=== PATIENT | female | born 1945 | race Caucasian/White ===

== ENCOUNTER → 2020-06-30 10:15 | Outpatient (BNV) | payer MEDICARE, OTHER, SELFPAY | PROVIDERS: PCP Internal Medicine; Visit Provider Internal Medicine Medical Oncology | DX: Z85.3 Personal history of malignant neoplasm of breast (principal); M81.0 Age-related osteoporosis without current pathological fracture; Z79.810 Long term (current) use of selective estrogen receptor modulators (SERMs) | CPT/HCPCS: 99213; 99214 ==

== ENCOUNTER 2020-07-17 09:00 | Outpatient (REF) | payer MEDICARE, OTHER, SELFPAY ==
--- NOTE | 2020-07-17 09:06 | MM_ITS ---
EXAMINATION: BONE DENSITOMETRY CLINICAL INDICATION: Osteoporosis, history of left breast cancer in 2014. COMPARISON: Previous BD dated 07/13/2018 and baseline BD dated 08/31/2013. TECHNIQUE: Using a inexio DXA System (software version: 13.1) manufactured by [employer], dual-energy x-ray absorptiometry was performed of the lumbar spine and left hip. The images are of good technical quality. Summary results are attached. FINDINGS: AP SPINE L1-L4: Current: BMD 0.943 g/cm2, Z-score 0.3, T-score -2.0, osteopenia, 6.4% increase from previous, 6.7% increase from baseline (<5% change is not significant). Prior: BMD 0.886 g/cm2. Baseline: BMD 0.884 g/cm2. LEFT FEMUR, NECK: Current: BMD 0.645 g/cm2, Z-score -0.6, T-score -2.8, osteoporosis. Prior: BMD 0.688 g/cm2. Baseline: BMD 0.691 g/cm2. LEFT FEMUR, TOTAL: Current: BMD 0.690 g/cm2, Z-score -0.4, T-score -2.5, osteoporosis, 1.8% decrease from previous, 3.9% decrease from baseline (<5% change is not significant). Prior: BMD 0.703 g/cm2. Baseline: BMD 0.718 g/cm2. IDENTIFIED RISK FACTORS: Osteoporosis, ERT/SERMS, menopause. HISTORY OF FRACTURE: None listed. MEDICATIONS: Vitamin D. MM/XR DEXA axial skeleton IMPRESSION: 1. DIAGNOSIS: Osteoporosis based on the lowest T-score value of -2.8 in the femoral neck applying World Health Organization criteria. 2. 10-YEAR FRACTURE RISK PREDICTION, FRAX: Major osteoporotic fracture (clinical spine, forearm, hip or shoulder) 17.5%. Hip fracture 6.8%. 3. Treatment Recommendations: NOF guidelines recommend consideration for treatment in postmenopausal women and men age 50 and older presenting with the following: -A hip or vertebral (clinical or morphometric) fracture. -T-score less than or equal to -2.5 at the femoral neck or spine after appropriate evaluation to exclude secondary causes. -Low bone mass at the hip or spine and a 10-year fracture probability by FRAX of greater than or equal to 3% for hip fracture or greater than or equal to 20% for major osteoporotic fracture based on the [place] adapted WHO algorithm. 4. Other Recommendations: All treatment decisions require clinical judgment and consideration of individual patient factors, including patient preferences, comorbidities, previous drug use, risk factors not captured in the FRAX model (e.g. frailty, falls, vitamin D deficiency, increased bone turnover, interval significant decline in bone density) and possible under or overestimation of fracture risk by FRAX. Additional medical evaluation for secondary cause of low bone mineral density may be appropriate. FUTURE SCAN RECOMMENDATION: People with diagnosed cases of osteoporosis or at high risk for fracture should have regular bone mineral density tests. For patients eligible for Medicare, routine testing is allowed once every 2 years. The testing frequency can be increased to one year for patients who have rapidly progressing disease, those who are receiving or discontinuing medical therapy to restore bone mass, or have additional risk factors.
== END 2020-07-17 09:01 | disposition home or self-care (01) ==
LOC: HO.MAMMO 09:00
PROVIDERS: PCP Internal Medicine; Visit Provider Internal Medicine Medical Oncology
DX: C50.919 Malignant neoplasm of unspecified site of unspecified female breast (principal); M81.0 Age-related osteoporosis without current pathological fracture; Z78.0 Asymptomatic menopausal state
CPT/HCPCS: 77080

== ENCOUNTER → 2020-09-02 13:42 | Outpatient (BNVA) | payer MEDICARE, OTHER, SELFPAY | PROVIDERS: PCP Internal Medicine; Referring Provider Internal Medicine; Visit Provider Internal Medicine Cardiovascular Disease | DX: I63.9 Cerebral infarction, unspecified (principal); Z95.818 Presence of other cardiac implants and grafts | CPT/HCPCS: 99212 ==

== ENCOUNTER 2020-09-10 11:07 | Outpatient (REF) | payer MEDICARE, OTHER, SELFPAY ==
[2020-09-10 09:09] VITALS: BP 137/75; PULSE 77; RESP 16; TEMP 37.1; O2SAT 99
[2020-09-10 10:00] VITALS: BP 132/72; PULSE 75; RESP 16; O2SAT 99
--- NOTE | 2020-09-10 10:06 | P.BOP_ITS ---
Brief Operative Note Date of Service: 09/10/20 Pre-op diagnosis: Implantable loop recorder in place Post-op diagnosis: same Procedure: Explant implantable loop recorder Technique: Patient was brought to the minor surgery suite. Patient was then laid on the table in a supine position. The precordial area was prepped and draped in a sterile fashion. Patient was then given 2% lidocaine with epinephrine intradermally and subcutaneously at the site of the implantable loop recorder. A small incision was made in the skin and dermal layers. The implantable loop recorder was then removed. The wound was then closed with glue as well as S nikole-Strips. Pressure dressing was applied. Complications none Patient tolerated procedure well Follow up in 10 days for wound check Surgeon: Heriberto Parmar MD Anesthesia: local Estimated blood loss (mL): 5 Pathology: none sent Condition: stable Disposition: same day
== END 2020-09-10 11:08 | disposition home or self-care (01) ==
LOC: HO.MS 11:07
PROVIDERS: PCP Internal Medicine; Visit Provider Internal Medicine Cardiovascular Disease
PROC: (CPT 33286; principal; 2020-09-10 09:30)
DX: Z45.09 Encounter for adjustment and management of other cardiac device (principal); Z86.73 Personal history of transient ischemic attack (TIA), and cerebral infarction without residual deficits
CPT/HCPCS: 33286

== ENCOUNTER → 2020-09-23 10:37 | Outpatient (BNVA) | payer MEDICARE, OTHER, SELFPAY | PROVIDERS: PCP Internal Medicine; Visit Provider Internal Medicine Cardiovascular Disease | DX: Z86.73 Personal history of transient ischemic attack (TIA), and cerebral infarction without residual deficits (principal); Z79.82 Long term (current) use of aspirin; Z98.890 Other specified postprocedural states | CPT/HCPCS: 99212 ==

== ENCOUNTER 2020-11-18 08:02 | Outpatient (REF) | payer MEDICARE, SELFPAY ==
[2020-11-18 08:43] LABS: MANUAL DIFF FLAG NO
[2020-11-18 08:46] LABS: Basophils Absolute Auto 0.1 X10*3/uL (0.0-0.2); Basophils Percent Auto 0.8 % (0-2); Eosinophils Absolute Auto 0.4 X10*3/uL (0.0-0.4); Eosinophils Percent Auto 5.7 % (0-4); Hematocrit 41.8 % (37-47); Hemoglobin 13.9 g/dl (12.0-16.0); Imm Gran Abs Auto 0.02 X10*3/uL (0.00-0.03); Imm Gran Pct Auto 0.3 % (0.0-0.4); Lymphocytes Absolute Auto 1.7 X10*3/uL (1.2-4.9); Lymphocytes Percent Auto 24.2 % (20-40); Mean Corpuscular HGB Conc 33.3 g/dl (31.0-35.0); Mean Corpuscular Hemoglobin 32.9 pg (27.0-33.0); Mean Corpuscular Volume 98.8 fL (80-98); Mean Platelet Volume 10.8 fL (9.4-12.3); Monocytes Absolute Auto 0.5 X10*3/uL (0.1-1.2); Monocytes Percent Auto 6.7 % (2-11); Neutrophils Absolute Auto 4.5 X10*3/uL (2.0-8.3); Neutrophils Percent Auto 62.3 % (45-73); Platelet Count 273 X10*3/uL (160-400); Red Blood Count 4.23 X10*6/uL (4.20-5.50); Red Cell Distribution Width 13.4 % (11.0-16.0); White Blood Count 7.2 X10*3/uL (4.8-10.8)
[2020-11-18 09:18] LABS: Alanine Aminotransferase 19 U/L (0-31); Albumin Level 3.8 g/dL (3.5-5.0); Alkaline Phosphatase 90 U/L (39-117); Anion Gap 15 (12-20); Aspartate Amino Transferase 29 U/L (5-31); Bilirubin Total 0.6 mg/dL (0.0-1.0); Blood Urea Nitrogen 34 mg/dL (9-16); Calcium 9.5 mg/dL (8.4-10.2); Carbon Dioxide 27 mmol/L (22-29); Chloride 107 mmol/L (96-108); Estimated Glomerular Filt Rate 39; Glucose Random 89 mg/dL (60-115); Potassium 4.8 mmol/L (3.3-5.1); Sodium 144 mmol/L (135-145); Total Protein 6.7 g/dL (6.5-8.0)
[2020-11-18 09:41] LABS: Vitamin D 25-OH Total 57.1 ng/mL (>30)
== END 2020-11-18 08:03 | disposition home or self-care (01) ==
LOC: HO.LAB 08:02
PROVIDERS: PCP Internal Medicine; Visit Provider Internal Medicine Medical Oncology
DX: C50.919 Malignant neoplasm of unspecified site of unspecified female breast (principal)
CPT/HCPCS: 36415; 80053; 82306; 85025

== ENCOUNTER 2020-11-21 06:30 | Outpatient (REF) | payer MEDICARE, SELFPAY ==
[2020-11-21 07:50] LABS: Cholesterol 166 mg/dL; HDL Cholesterol 75 mg/dL; LDL Cholesterol Calculated 82 mg/dl; Triglycerides 49 mg/dL; Uric Acid 6.3 mg/dL (2.4-5.7)
== END 2020-11-21 06:31 | disposition home or self-care (01) ==
LOC: HO.LAB 06:30
PROVIDERS: PCP Internal Medicine; Visit Provider Internal Medicine
DX: E11.9 Type 2 diabetes mellitus without complications (principal); M10.9 Gout, unspecified
CPT/HCPCS: 36415; 80061; 84550

== ENCOUNTER 2020-12-17 10:10 | Outpatient (REF) | payer MEDICARE, SELFPAY ==
--- NOTE | ~2020-12-17 | MM_ITS ---
EXAMINATION: MM SCREENING DIGITAL BREAST TOMOSYNTHESIS, BILATERAL CLINICAL INFORMATION: Screening. Asymptomatic. Left breast cancer 2013. COMPARISON: Mammography: 07/16/2019, 07/13/2018, 07/11/2017 TECHNIQUE: Digital breast tomosynthesis is performed in both the craniocaudal and mediolateral oblique views along with computer-aided detection (CAD). Synthesized 2D images are generated from the tomosynthesis. Additional left MLO view is provided. FINDINGS: The breasts are heterogeneously dense, which may obscure small masses (ACR BI-RADS breast composition Category c). Parenchymal pattern is similar to prior studies. There is no developing density or interval mass or architectural abnormality. No interval abnormal calcifications.. Again, there are post therapy changes on left with minor scarring and surgical clips. No significant changes from prior studies. MM/MM tomosynthesis screening BI IMPRESSION: No mammographic evidence of malignancy. Post therapy changes left breast. ASSESSMENT: BI-RADS 2: Benign RECOMMENDATION: Routine annual mammography screening. This patient's information was entered into a reminder system with a target due date for their next mammogram.
== END 2020-12-17 10:11 | disposition home or self-care (01) ==
LOC: HO.MAMMO 10:10
PROVIDERS: Visit Provider Internal Medicine Medical Oncology
DX: Z12.31 Encounter for screening mammogram for malignant neoplasm of breast (principal)
CPT/HCPCS: 77063; 77067

== ENCOUNTER 2021-05-20 06:55 | Outpatient (REF) | payer MEDICARE, OTHER, SELFPAY ==
[2021-05-20 09:45] LABS: Cholesterol 171 mg/dL; HDL Cholesterol 72 mg/dL; LDL Cholesterol Calculated 91 mg/dl; Triglycerides 43 mg/dL; Uric Acid 6.4 mg/dL (2.4-5.7)
== END 2021-05-20 06:56 | disposition home or self-care (01) ==
LOC: HO.LAB 06:55
PROVIDERS: PCP Internal Medicine; Visit Provider Internal Medicine
DX: E11.9 Type 2 diabetes mellitus without complications (principal); M10.9 Gout, unspecified
CPT/HCPCS: 36415; 80061; 84550

== ENCOUNTER → 2021-08-04 10:57 | Outpatient (BNVA) | payer MEDICARE, OTHER, SELFPAY | PROVIDERS: PCP Internal Medicine; Referring Provider Internal Medicine; Visit Provider Surgery | DX: C50.919 Malignant neoplasm of unspecified site of unspecified female breast (principal) | CPT/HCPCS: 99212 ==

== ENCOUNTER 2021-10-20 13:52 | Emergency (ER) | payer MEDICARE, OTHER, SELFPAY ==
--- NOTE | ~2021-10-20 | XR_ITS ---
EXAMINATION: LEFT WRIST X-RAY CLINICAL INFORMATION: Pain. Fall. COMPARISON: None TECHNIQUE: 4 views of the left wrist FINDINGS: The bones are osteopenic. There is a transverse comminuted slightly impacted fracture of the left distal radius. There is slight dorsal angulation of the distal radius with respect to the more proximal shaft seen on the lateral view. There is a comminuted minimally displaced ulnar styloid fracture. Carpal bones are normal appearing. There may be soft tissue calcification in the triangular fibrocartilage complex region. There is soft tissue swelling about the wrist. XR/XR hand wrist LT IMPRESSION: Comminuted left distal radius and ulnar styloid fractures.
[2021-10-20 14:25] VITALS: BP 159/78; PULSE 76; RESP 18; TEMP 36.6; O2SAT 98; BMI 19.3
--- NOTE | 2021-10-20 14:29 | PC.NURSE ---
sling applied, declined apap or motrin
--- NOTE | 2021-10-20 17:37 | ED_ITS ---
HPI - Fall General Chief Complaint: Upper Respiratory Symptoms <Lia Wen NP - Last Filed: 10/20/21 17:42> Stated Complaint: + wrist fracture <Lia Wen NP - Last Filed: 10/20/21 17:42> Time Seen by Provider: 10/20/21 16:53 <Lia Wen NP - Last Filed: 10/20/21 17:42> Source: patient <Lia Wen NP - Last Filed: 10/20/21 17:42> Mode of arrival: ambulatory <Lia Wen NP - Last Filed: 10/20/21 17:42> Limitations: no limitations <Lia Wen NP - Last Filed: 10/20/21 17:42> History of Present Illness HPI Narrative: 76-year-old female here with reports of left wrist pain after a fall. Patient tells me she was time her shoe lace when she lost her balance falling forward catching herself with her left wrist there was no head strike or loss of consciousness. Patient is on aspirin 81 mg daily only. No additional antic oagulation. Seen at urgent care referred into the emergency department for further evaluation. Patient denies any numbness, tingling, weakness, redness, warmth to the extremity <Lia Wen NP - Last Filed: 10/20/21 17:42> Related Data Home Medications: Home Medications Medication Instructions Recorded Confirmed aspirin 81 mg tablet 81 mg PO DAILY 06/30/20 10/20/21 cholecalciferol (vitamin D3) 25 25 mcg PO DAILY 06/30/20 10/20/21 mcg (1,000 unit) tablet (Vitamin D3) Previous Rx's Medication Instructions Recorded allopurinol 100 mg tablet 100 mg PO DAILY #90 tab 07/09/21 atorvastatin 40 mg tablet 40 mg PO DAILY #90 tab 09/29/21 raloxifene 60 mg tablet 60 mg PO DAILY #90 tab 09/29/21 <Lia Wen NP - Last Filed: 10/20/21 17:42> Allergies/Adverse Reactions: Allergies Allergy/AdvReac Type Severity Reaction Status Date / Time No Known Allergies Allergy Verified 10/20/21 13:30 [No Known Allergies*] <Lia Wen NP - Last Filed: 10/20/21 17:42> Review of Systems Verdana 4l Review of Systems: Verdana 4d Yes all other systems are reviewed and are negative Verdana 4Il <Lia Wen NP - Last Filed: 10/20/21 17:42> Verdana 4d Verdana 4l Constitutional: Verdana 4d Verdana 4d Constitutional: Verdana 4d Reports no additional constitutional complaints, Denies body ache(s), Denies chills, Denies fever(s), Denies headache(s) and Denies weakness Verdana 4Il <Lia Wen NP - Last Filed: 10/20/21 17:42> VerdanaVerdana 4d Eyes: Eyes: Reports no additional eye complaints and Denies change in vision <Lia Wen NP - Last Filed: 10/20/21 17:42> ENT: Reports system reviewed and no additional complaints, except as documented, Denies dizziness, Denies headache(s), Denies nasal congestion, Denies nasal discharge and Denies neck pain <Lia Wen NP - Last Filed: 10/20/21 17:42> Cardiovascular: Cardiovascular: Reports no additional cardiovascular complaints, Denies chest pain, Denies leg edema and Denies dyspnea <Lia Wen NP - Last Filed: 10/20/21 17:42> Respiratory: Respiratory: Reports no additional respiratory complaints, Denies cough and Denies dyspnea <Lia Wen NP - Last Filed: 10/20/21 17:42> Gastrointestinal: Gastrointestinal: Reports no additional gastrointestinal complaints, Denies abdominal pain, Denies diarrhea, Denies nausea and Denies vomiting <Lia Wen NP - Last Filed: 10/20/21 17:42> Genitourinary: Genitourinary: Reports no additional female genitourinary complaints and Denies urinary incontinence <Lia Wen NP - Last Filed: 10/20/21 17:42> Musculoskeletal: Musculoskeletal: Reports no additional musculoskeletal complaints, Denies back pain, Reports arthralgias, Reports joint swelling, Reports limited range of motion, Denies neck pain, Denies numbness and Denies tingling <Lia Wen NP - Last Filed: 10/20/21 17:42> Integumentary/Breasts: Skin/Breast: Reports system reviewed and no additional complaints, except as docu and Denies rash <Lia Wen NP - Last Filed: 10/20/21 17:42> Neurologic: Reports system reviewed and no additional complaints, except as documented, Denies Abnormal speech present, Denies dizziness, Denies headache(s), Denies numbness, Denies tingling and Denies weakness <Lia Wen NP - Last Filed: 10/20/21 17:42> PMFSH Past Medical History Attestation statement: The following information was validated with the patient. <Lia Wen NP - Last Filed: 10/20/21 17:42> Source: old records reviewed and nursing notes reviewed <Lia Wen NP - Last Filed: 10/20/21 17:42> Medical History: Medical History CVA (cerebral vascular accident) Hyperlipidemia Status post placement of implantable loop recorder <Lia Wen NP - Last Filed: 10/20/21 17:42> Surgical History: Surgical History History of left breast biopsy (07/19/13) Hx of cataract extraction Hx of colonoscopy (03/04/15) Hx of lumpectomy (08/17/13) <Lia Wen NP - Last Filed: 10/20/21 17:42> Family History Family History: Family History Father COPD (chronic obstructive pulmonary disease) Mother Asthma Sister Breast cancer, Onset Age: 70 Maternal Grandfather Lung cancer <Lia Wen NP - Last Filed: 10/20/21 17:42> Social History Social History: Social History Housing: House Alcohol intake: never Patient Tobacco Use Status: Never used Tobacco e-Cigarette/Vaping Use: Never Used Second Hand Smoke Exposure: No Advance Directives: No Advance Directives Information Provided: No service: No 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al status: retired <Lia Wen NP - Last Filed: 10/20/21 17:42> Physical Exam Verdana 4l Vital Signs: Verdana 4d Verdana 4d Vital Signs: Verdana 4d Verdana 4Bd Last Vital Signs Verdana 4d Personal Caregiver New 4d Personal Caregiver New 4d Temp 98 F 10/20/21 14:25 Personal Caregiver New 4d Pulse 76 10/20/21 14:25 Personal Caregiver New 4d Resp 18 10/20/21 14:25 BP 159/78 H 10/20/21 14:25 Pulse Ox 98 10/20/21 14:25 BMI result Body Mass Index 19.3 <Lia Wen NP - Last Filed: 10/20/21 17:42> Const: General: cooperative, healthy appearing, comfortable and no acute distress <Lia Wen NP - Last Filed: 10/20/21 17:42> Orientation/consciousness: patient oriented x3 <Lia Wen NP - Last Filed: 10/20/21 17:42> Limitations: no limitations <Lia Wen NP - Last Filed: 10/20/21 17:42> HENMT: Head: Yes normal to inspection <Lia Wen NP - Last Filed: 10/20/21 17:42> Ears: hearing grossly normal bilaterally <Lia Wen NP - Last Filed: 10/20/21 17:42> General nose exam: Normal external nose present <Lia Wen NP - Last Filed: 10/20/21 17:42> Face and sinus: Yes normal facial exam <Lia Wen NP - Last Filed: 10/20/21 17:42> Mouth: Normal oral and palatal mucosa present <Lia Wen NP - Last Filed: 10/20/21 17:42> Throat: Yes posterior oropharynx normal <Lia Wen NP - Last Filed: 10/20/21 17:42> Eyes: General: appearance normal, both eyes and all related structures <Lia Wen NP - Last Filed: 10/20/21 17:42> Pupils: Equal, round and reactive pupils present <Lia Wen NP - Last Filed: 10/20/21 17:42> Neck: Neck: Yes normal visual inspection <Lia Wen NP - Last Filed: 10/20/21 17:42> Chest: Chest palpation & inspection: normal inspection of the chest <Lia Wen NP - Last Filed: 10/20/21 17:42> Resp: Effort & Inspection: normal respiratory effort <Lia Wen NP - Last Filed: 10/20/21 17:42> Auscultation: clear to auscultation bilaterally <Lia Wen NP - Last Filed: 10/20/21 17:42> Cardio: Rate: regular rate <Lia Wen NP - Last Filed: 10/20/21 17:42> Rhythm: regular rhythm <Lia Wen NP - Last Filed: 10/20/21 17:42> Peripheral pulses: Peripheral pulses 2+ throughout <Lia eWn NP - Last Filed: 10/20/21 17:42> GI: Inspection: Yes normal to inspection <Lia Wen NP - Last Filed: 10/20/21 17:42> Palpation (GI): Soft to palpation and nontender <Lia Wen NP - Last Filed: 10/20/21 17:42> Auscultation: normal bowel sounds <Lia Wen NP - Last Filed: 10/20/21 17:42> Back/Spine/Pelvis: Thoracic/Lumbar Spine: thoracic and lumbar spine normal to inspection <Lia Wen NP - Last Filed: 10/20/21 17:42> Skin: General skin exam: no rashes or lesions noted <Lia Wen NP - Last Filed: 10/20/21 17:42> Neuro: General: patient oriented x3, no focal motor deficits and normal sensation to monofilament <BLAIR Archer Last Filed: 10/20/21 17:42> Cranial nerves: Yes Equal, round and reactive pupils present <BLAIR Archer Last Filed: 10/20/21 17:42> Cognition (Neuro): normal cognition <BLAIR Archer Last Filed: 10/20/21 17:42> Speech: No Abnormal speech present <BLAIR Archer Last Filed: 10/20/21 17:42> Gait exam (Neuro): Normal gait present <BLAIR Archer Last Filed: 10/20/21 17:42> Motor exam (neuro): 5/5 motor strength present throughout <BLAIR Archer Last Filed: 10/20/21 17:42> Extrem: Other: To the left wrist there is swelling, deformity, tenderness with limited range of motion due to pain. Neurovascular intact distally to the extremity. Over the palmar aspect there is a skin tear but bleeding is controlled. <BLAIR Archer Last Filed: 10/20/21 17:42> General: Yes normal to inspection <Lia Wen NP - Last Filed: 10/20/21 17:42> Course Course Course Narrative: 76-year-old female here with left wrist pain, swelling after a mechanical fall. X-ray show Comminuted left distal radius and ulnar styloid fractures.? -patient placed in a sugar-tong splint and given sling for comfort. Reviewed follow-up with Orthopedics. Reviewed rice. Reviewed worrisome signs symptoms when to return to the emergency department. Comfortable discharge home. <BLAIR Archer Last Filed: 10/20/21 17:42> Procedures Orthopedic Splinting/Casting Injury #1: Side: left <BLAIR Archer Last Filed: 10/20/21 17:42> Upper Extremity Injury Location: forearm <BLAIR Archer Last Filed: 10/20/21 17:42> Upper Extremity Immobilizer: sugar tong splint <BLAIR Archer Last Filed: 10/20/21 17:42> MDM - Fall Medical Records Attestation: I reviewed the patient's medical records. <Lia Wen NP - Last Filed: 10/20/21 17:42> Lab Data Attestation: I reviewed the patient's lab results. <BLAIR Archer Last Filed: 10/20/21 17:42> Imaging Data hand/wrist x-ray: Attestation: I personally reviewed and interpreted this imaging study as follows: <BLAIR Archer Last Filed: 10/20/21 17:42> Radiologist's impression: FINDINGS: The bones are osteopenic. There is a transverse comminuted slightly impacted fracture of the left distal radius. There is slight dorsal angulation of the distal radius with respect to the more proximal shaft seen on the lateral view. There is a comminuted minimally displaced ulnar styloid fracture. Carpal bones are normal appearing. There may be soft tissue calcification in the triangular fibrocartilage complex region. There is soft tissue swelling about the wrist.? XR/XR hand wrist LT IMPRESSION: Comminuted left distal radius and ulnar styloid fractures.? <BLAIR Archer Last Filed: 10/20/21 17:42> Discharge Plan Discharge Clinical Impression: Left wrist fracture <BLAIR Archer Last Filed: 10/20/21 17:42> Patient Disposition: Home, Self-Care <BLAIR Archer Last Filed: 10/20/21 17:42> Instructions: Wrist Fracture in Adults (ED) <BLAIR Archer Last Filed: 10/20/21 17:42> Additional Instructions: Splint stays on at all times. Do not get it wet Sling for comfort only Elevation on 3 or more pillows Call orthopedics tomorrow for an apointment <BLAIR Archer Last Filed: 10/20/21 17:42> Prescriptions: No Action allopurinol 100 mg tablet 100 mg PO DAILY Qty: 90 8RF atorvastatin 40 mg tablet 40 mg PO DAILY Qty: 90 1RF Rx Instructions: Please call and schedule cardiology follow-up aspirin 81 mg Tablet 81 mg PO DAILY 0RF cholecalciferol (vitamin D3) [Vitamin D3] 25 mcg (1,000 unit) Tablet 25 mcg PO DAILY 0RF raloxifene 60 mg Tablet 60 mg PO DAILY Qty: 90 4RF <Lia Wen NP - Last Filed: 10/20/21 17:42> Referrals: Mignon Alicia MD [Physician] - 2 days <Lia Wen NP - Last Filed: 10/20/21 17:42> Interventions: ED Discharge Assessment Last Done: 10/20/21 18:09 <Lia Wen NP - Last Filed: 10/20/21 17:42> Discharge Date/Time: 10/20/21 18:12 <Lia Wen NP - Last Filed: 10/20/21 17:42>
== END 2021-10-20 18:12 | disposition home or self-care (01) ==
LOC: HO.ED 13:52
PROVIDERS: Emergency Provider Emergency Medicine; PCP Internal Medicine; Visit Provider Hospitalist
DX: S62.102A Fracture of unspecified carpal bone, left wrist, initial encounter for closed fracture (principal); M25.532 Pain in left wrist; J06.9 Acute upper respiratory infection, unspecified; W01.0XXA Fall on same level from slipping, tripping and stumbling without subsequent striking against object, initial encounter; Y93.9 Activity, unspecified; Y92.9 Unspecified place or not applicable; Y99.9 Unspecified external cause status; Z79.82 Long term (current) use of aspirin; Z79.899 Other long term (current) drug therapy
CPT/HCPCS: 29125; 73110; 73130; 99283; 99284

== ENCOUNTER → 2021-10-22 09:41 | Outpatient (BNVA) | payer MEDICARE, OTHER, SELFPAY | PROVIDERS: PCP Internal Medicine; Visit Provider Physician Assistant | DX: S52.502A Unspecified fracture of the lower end of left radius, initial encounter for closed fracture (principal) | CPT/HCPCS: 29125; 99202 ==

== ENCOUNTER 2021-10-27 09:01 | Outpatient (REF) | payer MEDICARE, OTHER, SELFPAY ==
--- NOTE | ~2021-10-27 | XR_ITS ---
EXAMINATION: XR WRIST, LEFT CLINICAL INFORMATION: Pain left wrist. Follow-up fracture. COMPARISON: Left hand and wrist 10/20/2021 . TECHNIQUE: PA, lateral, and oblique views of the left wrist. FINDINGS: There is a comminuted distal radial transverse fracture without displacement. There is a mildly displaced ulnar styloid process fracture with moderate wrist soft tissue swelling along the ulnar aspect. There is mild dorsal angulation at radial fracture site. XR/XR wrist LT min 3V IMPRESSION: Nondisplaced distal radial comminuted fracture with dorsal angulation and minimally displaced ulnar styloid fracture with soft tissue swelling, stable compared to previous study 10/20/2021.
== END 2021-10-27 09:02 | disposition home or self-care (01) ==
LOC: HO.HOSX 09:01
PROVIDERS: Visit Provider Orthopaedic Surgery
DX: S52.502A Unspecified fracture of the lower end of left radius, initial encounter for closed fracture (principal)
CPT/HCPCS: 25600; 73110; 99212

== ENCOUNTER 2021-11-03 07:42 | Outpatient (REF) | payer MEDICARE, OTHER, SELFPAY ==
--- NOTE | ~2021-11-03 | XR_ITS ---
EXAMINATION: XR WRIST, LEFT CLINICAL INFORMATION: Pain in the wrist. COMPARISON: X-ray of the left wrist most recent 10/27/2020. TECHNIQUE: PA, lateral, and oblique views of the left wrist. FINDINGS: Distal radius fracture and ulnar styloid fracture again visualized without change in appearance or alignment. Decreased soft tissue swelling. Remaining bone and joints in the wrist are normal. XR/XR wrist LT min 3V IMPRESSION: Stable distal radius and ulnar styloid fracture.
== END 2021-11-03 07:43 | disposition home or self-care (01) ==
LOC: HO.HOSX 07:42
PROVIDERS: Visit Provider Physician Assistant
DX: S52.502A Unspecified fracture of the lower end of left radius, initial encounter for closed fracture (principal); X58.XXXA Exposure to other specified factors, initial encounter; Y93.9 Activity, unspecified; Y92.9 Unspecified place or not applicable; Y99.9 Unspecified external cause status
CPT/HCPCS: 29085; 73110; 99212

== ENCOUNTER 2021-11-12 07:46 | Outpatient (REF) | payer MEDICARE, OTHER, SELFPAY ==
[2021-11-12 08:11] LABS: MANUAL DIFF FLAG NO
[2021-11-12 08:40] LABS: Basophils Percent Auto 0.4 % (0-2); Eosinophils Absolute Auto 0.3 X10*3/uL (0.0-0.4); Eosinophils Percent Auto 3.3 % (0-4); Hemoglobin 13.4 g/dl (12.0-16.0); Imm Gran Abs Auto 0.04 X10*3/uL (0.00-0.03); Imm Gran Pct Auto 0.4 % (0.0-0.4); Lymphocytes Absolute Auto 1.3 X10*3/uL (1.2-4.9); Mean Corpuscular HGB Conc 33.5 g/dl (31.0-35.0); Mean Corpuscular Hemoglobin 33.1 pg (27.0-33.0); Mean Corpuscular Volume 98.8 fL (80.0-98.0); Mean Platelet Volume 10.4 fL (9.4-12.3); Monocytes Absolute Auto 0.5 X10*3/uL (0.1-1.2); Monocytes Percent Auto 5.4 % (2-11); Neutrophils Absolute Auto 7.3 x10*3/uL (2.0-8.3); Neutrophils Percent Auto 76.5 % (45-73); Platelet Count 415 X10*3/uL (160-400); Red Blood Count 4.05 X10*6/uL (4.20-5.50); Red Cell Distribution Width 13.1 % (11.0-16.0); White Blood Count 9.5 X10*3/uL (4.8-10.8)
[2021-11-12 09:03] LABS: Alanine Aminotransferase 12 U/L (0-31); Albumin Level 3.6 g/dL (3.5-5.0); Alkaline Phosphatase 85 U/L (39-117); Anion Gap 13 (12-20); Aspartate Amino Transferase 24 U/L (5-31); Bilirubin Total 0.5 mg/dL (0.0-1.0); Blood Urea Nitrogen 27 mg/dL (9-16); Calcium 10.1 mg/dL (8.4-10.2); Carbon Dioxide 30 mmol/L (22-29); Chloride 103 mmol/L (96-108); Cholesterol 169 mg/dL; Estimated Glomerular Filt Rate 41; Glucose Fasting 94 mg/dL (60-99); HDL Cholesterol 70 mg/dL; LDL Cholesterol Calculated 89 mg/dl; Potassium 5.3 mmol/L (3.3-5.1); Sodium 141 mmol/L (135-145); Total Protein 6.8 g/dL (6.5-8.0); Triglycerides 50 mg/dL; Uric Acid 6.1 mg/dL (2.4-5.7)
== END 2021-11-12 07:47 | disposition home or self-care (01) ==
LOC: HO.LAB 07:46
PROVIDERS: PCP Internal Medicine; Visit Provider Internal Medicine
DX: Z00.00 Encounter for general adult medical examination without abnormal findings (principal); M10.9 Gout, unspecified; E11.9 Type 2 diabetes mellitus without complications
CPT/HCPCS: 36415; 80053; 80061; 84550; 85025

== ENCOUNTER 2021-11-17 07:30 | Outpatient (REF) | payer MEDICARE, OTHER, SELFPAY ==
--- NOTE | ~2021-11-17 | XR_ITS ---
EXAMINATION: XR WRIST, LEFT CLINICAL INFORMATION: Fracture. Follow-up. COMPARISON: Radiographs left wrist 11/03/2021, 10/27/2021, 10/20/2021. TECHNIQUE: Left wrist is imaged in 3 views. FINDINGS: Transverse distal radial fracture is unchanged in alignment. There is increased callus around the fracture site and the fracture line is less distinct. There is fracture ulnar styloid similar in alignment to prior exam. The ulnar variance is within neutral. There is no dislocation. Mild narrowing third MCP joint again seen. There is generalized osteopenia. XR/XR wrist LT min 3V IMPRESSION: Healing distal left radial fracture. No change in alignment. Stable ulnar styloid fracture.
== END 2021-11-17 07:31 | disposition home or self-care (01) ==
LOC: HO.HOSX 07:30
PROVIDERS: Visit Provider Physician Assistant
DX: M25.532 Pain in left wrist (principal); S52.515A Nondisplaced fracture of left radial styloid process, initial encounter for closed fracture; S52.615A Nondisplaced fracture of left ulna styloid process, initial encounter for closed fracture; X58.XXXA Exposure to other specified factors, initial encounter; Y93.9 Activity, unspecified; Y92.9 Unspecified place or not applicable; Y99.8 Other external cause status; M85.832 Other specified disorders of bone density and structure, left forearm; M85.831 Other specified disorders of bone density and structure, right forearm; E78.5 Hyperlipidemia, unspecified; Z86.73 Personal history of transient ischemic attack (TIA), and cerebral infarction without residual deficits; Z95.818 Presence of other cardiac implants and grafts
CPT/HCPCS: 73110; 99212

== ENCOUNTER 2021-12-10 08:05 | Outpatient (REF) | payer MEDICARE, OTHER, SELFPAY ==
--- NOTE | ~2021-12-10 | XR_ITS ---
EXAMINATION: XR wrist LT min 3V CLINICAL INFORMATION: Pain COMPARISON: 11/17/2021 wrist radiographs TECHNIQUE: 3 views of the wrist XR/XR wrist LT min 3V FINDINGS/IMPRESSION: Marked osteopenia which limits evaluation. Redemonstration of the ulnar styloid avulsion fracture in unchanged alignment. No bony callus formation. Redemonstration of the dorsally oriented fracture of the distal radial metaphysis in unchanged alignment with decreased conspicuity of the lucent fracture line compatible with ongoing healing. Degenerative changes of the third metacarpophalangeal joint again seen, however only partially imaged. Soft tissues are unremarkable.
== END 2021-12-10 08:06 | disposition home or self-care (01) ==
LOC: HO.HOSX 08:05
PROVIDERS: Visit Provider Physician Assistant
DX: S52.502D Unspecified fracture of the lower end of left radius, subsequent encounter for closed fracture with routine healing (principal)
CPT/HCPCS: 73110; 99212

== ENCOUNTER 2021-12-22 07:10 | Outpatient (REF) | payer MEDICARE, OTHER, SELFPAY ==
--- NOTE | ~2021-12-22 | XR_ITS ---
EXAMINATION: XR WRIST, LEFT CLINICAL INFORMATION: Pain COMPARISON: Previous x-rays most recent 12/10/2021 TECHNIQUE: PA, lateral, and oblique views of the left wrist. FINDINGS: There is increased transverse sclerosis in the distal radius suggestive of a healing fracture. This appears unchanged. There is a minimally displaced ulnar styloid fracture that appears unchanged. The bones are very osteopenic. Soft tissues are unremarkable. XR/XR wrist LT min 3V IMPRESSION: Healing nondisplaced transverse left distal radius fracture. No change in minimally displaced ulnar styloid fracture.
== END 2021-12-22 07:11 | disposition home or self-care (01) ==
LOC: HO.HOSX 07:10
PROVIDERS: Visit Provider Physician Assistant
DX: S52.502A Unspecified fracture of the lower end of left radius, initial encounter for closed fracture (principal)
CPT/HCPCS: 73110; 99212

== ENCOUNTER 2022-01-14 09:48 | Outpatient (REF) | payer MEDICARE, OTHER, SELFPAY ==
--- NOTE | ~2022-01-14 | MM_ITS ---
EXAMINATION: MM SCREENING DIGITAL BREAST TOMOSYNTHESIS, BILATERAL CLINICAL INFORMATION: Screening. Asymptomatic. Status post left breast biopsy for well differentiated invasive ductal carcinoma in 2013. COMPARISON: Mammography: December 17, 2020 and studies dating back to June 25, 2013 TECHNIQUE: Digital breast tomosynthesis is performed in both the craniocaudal and mediolateral oblique views along with computer-aided detection (CAD). Synthesized 2D images are generated from the tomosynthesis. FINDINGS: The breasts are extremely dense, which lowers the sensitivity of mammography (ACR BI-RADS breast composition Category d). There are no significant masses, abnormal calcifications, or other abnormalities. Architectural distortion upper outer aspect deep left breast from previous surgery again seen. MM/MM tomosynthesis screening BI IMPRESSION: There are no significant changes from prior study. ASSESSMENT: BI-RADS 2: Benign RECOMMENDATION: Routine annual mammography screening. This patient's information was entered into a reminder system with a target due date for their next mammogram.
== END 2022-01-14 09:49 | disposition home or self-care (01) ==
LOC: HO.MAMMO 09:48
PROVIDERS: Visit Provider Internal Medicine Medical Oncology
DX: Z12.31 Encounter for screening mammogram for malignant neoplasm of breast (principal)
CPT/HCPCS: 77063; 77067

== ENCOUNTER 2022-01-18 09:30 | Outpatient (RCR) | payer MEDICARE, OTHER, SELFPAY ==
--- NOTE | 2022-01-18 11:51 | MHC.OT.DC ---
[address] [phone] F: [phone] Occupational Therapy Discharge Note Provider: Rukhsana Valdez Diagnosis: Left comminuted distal radius and ulnar styloid Date of Surgery: Date of Evaluation: 12/14/21 Date of Discharge: 01/18/22 Treatments to Date: 9 Cancellations to Date: No Shows to Date: Discharge Status: Improved Function Independent with HEP Patient Elected to Stop Discharge Summary: Pt reports no difficulty with daily activities with having her open tight jars and any heavy lifting Wrist ROM WFL. 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 Appears to be doing HEP for upper body strengthening. Anticipate con't slow improvement . Pt has been encouraged to resume her exercise program at the [facility]. Electronically Signed By: Chasity Healy OT CHT CLT Reviewed/agree with student documentation: N/A Therapist: Please Sign and return to therapist, thank you for your referral.
== END 2022-01-18 11:52 | disposition home or self-care (01) ==
LOC: HO.OT 09:30
PROVIDERS: PCP Internal Medicine; Visit Provider Physician Assistant
DX: S52.502D Unspecified fracture of the lower end of left radius, subsequent encounter for closed fracture with routine healing (principal)
CPT/HCPCS: 97110; 97165; 97530

== ENCOUNTER 2022-05-27 06:35 | Outpatient (REF) | payer MEDICARE, SELFPAY ==
[2022-05-27 07:46] LABS: Cholesterol 162 mg/dL; HDL Cholesterol 68 mg/dL; LDL Cholesterol Calculated 85 mg/dl; Triglycerides 49 mg/dL
== END 2022-05-27 06:36 | disposition home or self-care (01) ==
LOC: HO.LAB 06:35
PROVIDERS: PCP Internal Medicine; Visit Provider Internal Medicine
DX: Z00.00 Encounter for general adult medical examination without abnormal findings (principal)
CPT/HCPCS: 36415; 80061

== ENCOUNTER 2022-07-21 10:12 | Outpatient (REF) | payer BC, OTHER, SELFPAY ==
--- NOTE | ~2022-07-21 | MM_ITS ---
EXAMINATION: BONE DENSITOMETRY CLINICAL INDICATION: Age-related osteoporosis without current pathological fracture. COMPARISON: Previous BD dated 07/17/2020 and baseline BD dated 08/31/2013. TECHNIQUE: Using a Feed[employer] DXA System (software version: 13.1) manufactured by [email or web address], dual-energy x-ray absorptiometry was performed of the lumbar spine and left hip. The images are of good technical quality. Summary results are attached. FINDINGS: AP SPINE L1-L4: Current: BMD 0.943 g/cm2, Z-score 0.3, T-score -2.0, osteopenia, 0.0% no change from previous, 6.7% increase from baseline (<5% change is not significant). Prior: BMD 0.943 g/cm2. Baseline: BMD 0.884 g/cm2. LEFT FEMUR, NECK: Current: BMD 0.710 g/cm2, Z-score 0.0, T-score -2.4, osteopenia. Prior: BMD 0.645 g/cm2. Baseline: BMD 0.691 g/cm2. LEFT FEMUR, TOTAL: Current: BMD 0.705 g/cm2, Z-score -0.2, T-score -2.4, osteopenia, 2.2% increase from previous, 1.8% decrease from baseline (<5% change is not significant). Prior: BMD 0.690 g/cm2. Baseline: BMD 0.718 g/cm2. IDENTIFIED RISK FACTORS: Menopause, osteoporosis, history of fracture (adult). HISTORY OF FRACTURE: Wrist. MEDICATIONS: Vitamin D, ERT/SERMS. MM/XR DEXA axial skeleton IMPRESSION: 1. DIAGNOSIS: Osteopenia based on the lowest T-score value of -2.4 in the femoral neck and total femur applying World Health Organization criteria. 2. 10-YEAR FRACTURE RISK PREDICTION, FRAX: Major osteoporotic fracture (clinical spine, forearm, hip or shoulder) 21.6%. Hip fracture 6.9%. 3. Treatment Recommendations: NOF guidelines recommend consideration for treatment in postmenopausal women and men age 50 and older presenting with the following: -A hip or vertebral (clinical or morphometric) fracture. -T-score less than or equal to -2.5 at the femoral neck or spine after appropriate evaluation to exclude secondary causes. -Low bone mass at the hip or spine and a 10-year fracture probability by FRAX of greater than or equal to 3% for hip fracture or greater than or equal to 20% for major osteoporotic fracture based on the [place] adapted WHO algorithm. 4. Other Recommendations: All treatment decisions require clinical judgment and consideration of individual patient factors, including patient preferences, comorbidities, previous drug use, risk factors not captured in the FRAX model (e.g. frailty, falls, vitamin D deficiency, increased bone turnover, interval significant decline in bone density) and possible under or overestimation of fracture risk by FRAX. Additional medical evaluation for secondary cause of low bone mineral density may be appropriate. FUTURE SCAN RECOMMENDATION: People with diagnosed cases of osteoporosis or at high risk for fracture should have regular bone mineral density tests. For patients eligible for Medicare, routine testing is allowed once every 2 years. The testing frequency can be increased to one year for patients who have rapidly progressing disease, those who are receiving or discontinuing medical therapy to restore bone mass, or have additional risk factors.
== END 2022-07-21 10:13 | disposition home or self-care (01) ==
LOC: HO.MAMMO 10:12
PROVIDERS: PCP Internal Medicine; Visit Provider Internal Medicine Medical Oncology
DX: M81.0 Age-related osteoporosis without current pathological fracture (principal)
CPT/HCPCS: 77080

== ENCOUNTER 2022-11-24 07:06 | Outpatient (REF) | payer BC, OTHER, SELFPAY ==
[2022-11-24 08:24] LABS: Cholesterol 171 mg/dL; HDL Cholesterol 73 mg/dL; LDL Cholesterol Calculated 90 mg/dl; Triglycerides 40 mg/dL; Uric Acid 5.9 mg/dL (2.4-5.7)
== END 2022-11-24 07:07 | disposition home or self-care (01) ==
LOC: HO.LAB 07:06
PROVIDERS: PCP Internal Medicine; Referring Provider Internal Medicine Medical Oncology; Visit Provider Internal Medicine
DX: M10.9 Gout, unspecified (principal); E78.5 Hyperlipidemia, unspecified
CPT/HCPCS: 36415; 80061; 84550

== ENCOUNTER 2023-01-31 08:54 | Outpatient (REF) | payer BC, SELFPAY ==
--- NOTE | ~2023-01-31 | MM_ITS ---
EXAMINATION: MM SCREENING DIGITAL BREAST TOMOSYNTHESIS, BILATERAL CLINICAL INFORMATION: Screening. Asymptomatic. Family history breast cancer, sister. Personal history left breast cancer status post lumpectomy, 2012. COMPARISON: Mammography: 01/14/2022, 12/17/2020, 07/16/2019 TECHNIQUE: Digital breast tomosynthesis is performed in both the craniocaudal and mediolateral oblique views along with computer-aided detection (CAD). Synthesized 2D images are generated from the tomosynthesis. FINDINGS: The breasts are heterogeneously dense, which may obscure small masses (ACR BI-RADS breast composition Category c). There are post therapy changes left breast with reduced breast size and stable scarring and surgical clips. Neither breast shows developing density or interval mass or architectural abnormality or interval abnormal calcifications. No significant mass or other abnormalities. No significant changes. MM/MM tomosynthesis screening BI IMPRESSION: -No mammographic evidence of malignancy. -Post therapy changes left breast. ASSESSMENT: BI-RADS 2: Benign RECOMMENDATION: Routine annual mammography screening. This patient's information was entered into a reminder system with a target due date for their next mammogram.
== END 2023-01-31 08:55 | disposition home or self-care (01) ==
LOC: HO.MAMMO 08:54
PROVIDERS: PCP Internal Medicine; Visit Provider Internal Medicine
DX: Z12.31 Encounter for screening mammogram for malignant neoplasm of breast (principal)
CPT/HCPCS: 77063; 77067

== ENCOUNTER 2023-06-01 07:18 | Outpatient (REF) | payer BC, OTHER, SELFPAY ==
[2023-06-01 07:32] LABS: MANUAL DIFF FLAG NO
[2023-06-01 08:02] LABS: Basophils Percent Auto 0.6 % (0-2); Eosinophils Absolute Auto 0.4 X10*3/uL (0.0-0.4); Eosinophils Percent Auto 5.1 % (0-4); Hematocrit 40.5 % (37.0-47.0); Hemoglobin 13.3 g/dl (12.0-16.0); Imm Gran Abs Auto 0.02 X10*3/uL (0.00-0.03); Imm Gran Pct Auto 0.3 % (0.0-0.4); Lymphocytes Absolute Auto 1.7 X10*3/uL (1.2-4.9); Mean Corpuscular HGB Conc 32.8 g/dl (31.0-35.0); Mean Corpuscular Hemoglobin 32.4 pg (27.0-33.0); Mean Corpuscular Volume 98.8 fL (80.0-98.0); Monocytes Absolute Auto 0.5 X10*3/uL (0.1-1.2); Monocytes Percent Auto 7.1 % (2-11); Neutrophils Absolute Auto 4.3 x10*3/uL (2.0-8.3); Neutrophils Percent Auto 62.9 % (45-73); Platelet Count 245 X10*3/uL (160-400); Red Cell Distribution Width 13.8 % (11.0-16.0); White Blood Count 6.9 X10*3/uL (4.8-10.8)
[2023-06-01 08:37] LABS: Alanine Aminotransferase 12 U/L (0-31); Albumin Level 3.5 g/dL (3.5-5.0); Alkaline Phosphatase 78 U/L (39-117); Anion Gap 12 (12-20); Aspartate Amino Transferase 27 U/L (5-31); Bilirubin Total 0.5 mg/dL (0.0-1.0); Blood Urea Nitrogen 27 mg/dL (9-16); Calcium 9.4 mg/dL (8.4-10.2); Carbon Dioxide 26 mmol/L (22-29); Chloride 110 mmol/L (96-108); Cholesterol 155 mg/dL (<200); Estimated Glomerular Filt Rate 40; Glucose Fasting 86 mg/dL (60-99); HDL Cholesterol 75 mg/dL (>40); LDL Cholesterol Calculated 72 mg/dL (<100); Potassium 4.3 mmol/L (3.3-5.1); Sodium 144 mmol/L (135-145); Total Protein 6.6 g/dL (6.5-8.0); Triglycerides 41 mg/dL (<150); Uric Acid 5.7 mg/dL (2.4-5.7)
[2023-06-01 08:55] LABS: Thyroid Stimulating Hormone 4.89 uIU/mL (0.32-4.0)
== END 2023-06-01 07:19 | disposition home or self-care (01) ==
LOC: HO.LAB 07:18
PROVIDERS: PCP Internal Medicine; Visit Provider Internal Medicine
DX: E03.9 Hypothyroidism, unspecified (principal); E78.5 Hyperlipidemia, unspecified; D64.9 Anemia, unspecified; N28.9 Disorder of kidney and ureter, unspecified; M10.9 Gout, unspecified
CPT/HCPCS: 36415; 80053; 80061; 84443; 84550; 85025

== ENCOUNTER 2023-06-08 09:11 | Outpatient (AMB) | payer BC, OTHER, SELFPAY ==
[2023-06-08 09:14] VITALS: BP 130/68; PULSE 65; O2SAT 98; BMI 19.1
--- NOTE | 2023-06-08 09:14 | A.OFFPC_ITS ---
Vital Signs 06/08/23 09:14 Height 5 ft 3 in Weight 108 lb BMI 19.1 BP 130/68 Blood Pressure Location Rt brachial Position Sitting Pulse 65 Pulse Source Pulse Oximeter Pulse Oximetry (%) 98 Oxygen Delivery Method Room Air Intake Visit Reasons: 6mth f/u Wellness Educator: Not Required per policy Accompanied by: Self / Same As Patient Allergies No Known Allergies [No Known Allergies*] Allergy (Verified 06/08/23 09:15) Medication List - Last Reconciled 06/08/23 by Jordy Prescott MD allopurinol 100 mg PO DAILY aspirin 81 mg PO DAILY atorvastatin 40 mg PO DAILY cholecalciferol (vitamin D3) (Vitamin D3) 25 mcg PO DAILY raloxifene 60 mg PO DAILY Tobacco use date assessed: 12/02/22 Fall risk assessment: No Falls in past year Last assessed Fall Risk: 06/08/23 Dental Screening Dental Screen Date: 06/08/23 Did you have a dental visit in the last 12 months?: Yes Did you have a dental problem in the last 6 months where you did not have access to dental care?: No Was dental information given to patient?: Patient has dentist HPI 6mth f/u HPI Details hyperlip gout and osteoporosis; doing well; refuses to change her osteoporosis med COUNT INCLUDES THE [facility] Medical History Hyperlipidemia Status post placement of implantable loop recorder CVA (cerebral vascular accident) Surgical History History of left breast biopsy (07/19/13) Hx of lumpectomy (08/17/13) Hx of colonoscopy (03/04/15) Hx of cataract extraction Family History Father COPD (chronic obstructive pulmonary disease) Mother Asthma Sister Breast cancer, Onset Age: 70 Maternal Grandfather Lung cancer Social History Household Members: Spouse and Children Housing: House Are you a primary managed care director to a significant other at home: No Do you presently have visiting nurse or other home services: No Alcohol intake: never Patient Tobacco Use Status: Never used Tobacco e-Cigarette/Vaping Use: Never Used Second Hand Smoke Exposure: No service: No 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al status: retired 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 1. Little interest or pleasure in doing things: not at all 2. Feeling down, depressed, or hopeless: not at all 3. Trouble falling or staying asleep, or sleeping too much: not at all 4. Feeling tired or having little energy: not at all 5. Poor appetite or overeating: not at all 6. Feeling bad about yourself - or that you are a failure or have let yourself or your family down: not at all 7. Trouble concentrating on things, such as reading the newspaper or watching television: not at all 8. Moving or speaking so slowly that other people could have noticed. Or the opposite - being so fidgety or restless that you have been moving around a lot more than usual: not at all 9. Thoughts that you would be better off or of hurting yourself in some way: not at all Total score: 0 Depression Screening Interpretation: Negative 23725 - PHQ-9 Billing: Yes Source: Developed by Drs. Darren Arroa, Nolvia Koroma, Cam Aviles and colleagues, with an educational paul from [employer]. Thrive Questionnaire Date Thrive assessed: 06/08/23 I am a: Patient What is your living situation today?: I have a steady place to live Within the past 12 months, did the food you bought not last and you didn't have the money to get more?: Never true Within the past 12 months, did you worry whether your food would run out before you got money to buy more?: Never true Do you have trouble paying for medicines?: No Do you have trouble getting transportation to medical appointments?: No Do you have trouble paying your heating and electricity bill?: No Do you have trouble taking care of your child, family member or friend?: No Do you have trouble with day-to-day activities such as bathing, preparing meals, shopping, managing finances, etc.?: No Are you currently unemployed and looking for a job?: No Are you interested in more education?: No Please select the resources that you would like help with: None AUDIT C Alcohol Use Questionnaire (AUDIT-C) 1. How often do you have a drink containing alcohol?: Never Total Score: 0 Score Reviewed/Action Taken: Yes ROD-7 AMB Questionnaire ROD-7 Date ROD - 7 assessed: 12/02/22 Source: Developed by Drs. Darren Arora, Nolvia Koroma, Cam Aviles and colleagues, with an educational paul from [employer]. Review of Systems Const Denies chills, Denies headache(s) and Denies weight loss ENT Denies headache(s) Card Denies chest pain, Denies syncope, Denies irregular heart rhythm and Denies dyspnea Resp Denies chest congestion, Denies cough and Denies dyspnea GI Denies abdominal pain, Denies change in stool character, Denies nausea and Denies vomiting Musc Denies deformity and Denies joint swelling Neuro Denies syncope and Denies headache(s) Physical exam (Primary Care) Vital Signs: Last Vital Signs Pulse 65 06/08/23 09:14 BP 130/68 06/08/23 09:14 Pulse Ox 98 06/08/23 09:14 Oxygen Delivery Method Room Air 06/08/23 09:14 BMI result Body Mass Index 19.1 Tobacco/Smoking Status: Tobacco use Status Tobacco use date assessed 12/02/22 06/08/23 09:20 Patient Tobacco Use Status Never used Tobacco 06/08/23 09:20 Tobacco use type 11/10/21 12:26 e-Cigarette/Vaping Use Never Used 06/08/23 09:20 PHQ-9: PHQ-9 Score PHQ-9: Total score 0 06/08/23 09:20 Depression Screening Interpretation: Negative Thrive Assessment: Date of Thrive Assessment Date Thrive assessed 06/08/23 06/08/23 09:20 Const General: cooperative, comfortable, no acute distress and alert Neck Neck: Yes no lymphadenopathy Thyroid: Thyroid normal Resp Effort & Inspection: normal respiratory effort Auscultation: clear to auscultation bilaterally Percussion: percussion normal Cardio Jugular venous distension: no JVD Palpation: normal PMI Rate: regular rate Rhythm: regular rhythm Heart sounds: S1 normal heart sound present and S2 normal heart sound present GI Inspection: Yes normal to inspection Palpation (GI): No hepatosplenomegaly present Skin General skin exam: no rashes or lesions noted Extrem General: Yes no clubbing, cyanosis or edema Assessment and Plan Assessment & Plan (1) Hyperlipidemia: Code(s): E78.5 - Hyperlipidemia, unspecified Plan: stable; same rx (2) Gout: Code(s): M10.9 - Gout, unspecified Plan: stable; same rx (3) Osteoporosis: Code(s): M81.0 - Age-related osteoporosis without current pathological fracture Plan: stable same rx Orders: Orders Lipid Panel Today E78.5 - Hyperlipidemia, unspecified Complete Blood Count Auto Diff Today D64.9 - Anemia, unspecified Comprehensive [place]. Panel Fast Today N28.9 - Disorder of kidney and ureter, unspecified Uric Acid Today M10.9 - Gout, unspecified Coding Level of Care Code Est Pt Level 4 (24220) Diagnoses Hyperlipidemia E78.5 Gout M10.9 Osteoporosis M81.0
== END 2023-06-08 09:32 | disposition home or self-care (01) ==
PROVIDERS: PCP Internal Medicine; Visit Provider Internal Medicine
DX: E78.5 Hyperlipidemia, unspecified (principal); M10.9 Gout, unspecified; M81.0 Age-related osteoporosis without current pathological fracture
CPT/HCPCS: 99214

== ENCOUNTER 2023-08-26 13:06 | Outpatient (AMB) | payer MEDICARE, SELFPAY ==
--- NOTE | 2023-08-26 13:14 | A.OFFVIS_ITS ---
Intake Vital Signs 08/26/23 13:20 Height 5 ft 3 in Weight 108 lb BMI 19.1 BP 139/67 Blood Pressure Location Lt brachial Position Sitting Pulse 74 Intake Visit Reasons: yearly breast exam Intake Note: Patient is seen in office for yearly breast exam. Pt c/o: denies any concerns regarding the breast, recently had med change to Raloxifene no side effects mm: 01/31/23 rupinder: 12/13/22 yr f/u [employer] Required: No Accompanied by: Self / Same As Patient Allergies No Known Allergies [No Known Allergies*] Allergy (Verified 08/26/23 13:19) Medication List - Last Reconciled 08/26/23 by Papa Gregg MD allopurinol 100 mg PO DAILY aspirin 81 mg PO DAILY atorvastatin 40 mg PO DAILY cholecalciferol (vitamin D3) (Vitamin D3) 25 mcg PO DAILY raloxifene 60 mg PO DAILY HPI HPI Comments History of Present Illness Details 77-year-old female patient returning for a yearly breast evaluation. She is a former patient of Dr. Tucker diagnosed with invasive ductal carcinoma of the left breast on 07/19/2013 on a stereotactic guided core biopsy. She subsequently underwent a left breast lumpectomy with sentinel node biopsy on 08/07/2013. Pathology revealed a 0.8 cm infiltrating ductal carcinoma, ER positive, MI negative, HER2 Sha negative. 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 She subsequently completed radiation therapy in October 2013 and was placed on tamoxifen for 5 years, completed in 2018 (Dr. Block). She was then placed on raloxifene which he remains on currently. She is on this for her osteoporosis. Her most recent mammogram dated Of 01/31/2023 revealed no mammographic evidence of malignancy ( BI-RADS 2). She is scheduled for a yearly mammogram on 02/02/2024. She feels well and denies any ongoing symptoms. [facility] Medical History Hyperlipidemia Status post placement of implantable loop recorder CVA (cerebral vascular accident) Surgical History History of left breast biopsy (07/19/13) Hx of lumpectomy (08/17/13) Hx of colonoscopy (03/04/15) Hx of cataract extraction Family History Father COPD (chronic obstructive pulmonary disease) Mother Asthma Sister Breast cancer, Onset Age: 70 Maternal Grandfather Lung cancer Social History Household Members: Spouse and Children Housing: House Are you a primary medicare specialist to a significant other at home: No Do you presently have visiting nurse or other home services: No Alcohol intake: never Patient Tobacco Use Status: Never used Tobacco e-Cigarette/Vaping Use: Never Used Second Hand Smoke Exposure: No service: No 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al status: retired 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: Rt 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 Cognitive needs: No Hearing needs: Yes (Hearing aids.) Vision needs: No Review of Systems Const Denies chills, Denies fever(s), Denies headache(s) and Denies poor appetite ENT Denies dizziness and Denies headache(s) Card Denies chest pain, Denies rapid heart rate, Denies palpitations and Denies slow heart rate Resp Denies chest congestion, Denies cough, Denies pain on inspiration and Denies wheezing GI Denies abdominal pain, Denies bloating, Denies change in stool character, Denies constipation, Denies diarrhea, Denies nausea, Denies vomiting and Denies hematemesis Denies nipple discharge Musc Denies back pain, Denies arthralgias, Denies joint swelling and Denies numbness Skin/Breast Denies breast skin changes, Denies breast pain, Denies breast mass, Denies change in breast shape, Denies change in pigmentation, Denies nipple discharge, Denies erythema and Denies rash Neuro Denies dizziness, Denies headache(s) and Denies numbness Psych Denies anxiety and Denies depression Endo Denies palpitations Isiah/Lymph Denies easy bleeding, Denies easy bruising and Denies lymphadenopathy Aller/Immun Denies wheezing Physical Exam Vital Signs: Last Vital Signs Pulse 74 08/26/23 13:20 BP 139/67 08/26/23 13:20 BMI result Body Mass Index 19.1 Const General: healthy appearing and no acute distress Nutritional Appearance: thin Orientation/consciousness: patient oriented x3 Limitations: no limitations HEENT Head: Yes normocephalic and Yes atraumatic Ears: hearing grossly normal bilaterally Eyes Sclerae: sclerae normal EOM: EOMs intact bilaterally Neck Neck: Yes normal visual inspection, Yes no lymphadenopathy and Yes trachea midline Thyroid: Thyroid normal Chest Other: Left breast: No skin change, no nipple retraction, no nipple discharge, no palpable mass, no enlarged lymph nodes. Left breast is somewhat stiffer compared to the right breast but no suspicious changes are appreciated. Right breast: No skin change, no nipple retraction, no nipple discharge, no palpable mass, no enlarged lymph nodes Resp Effort & Inspection: normal respiratory effort, no audible wheezes, no cough and no respiratory distress GI Inspection: Yes normal to inspection Skin General skin exam: no rashes or lesions noted Neuro General: patient oriented x3 Extrem General: Yes no clubbing, cyanosis or edema Assessment & Plan Assessment & Plan (1) Breast cancer: Code(s): C50.919 - Malignant neoplasm of unspecified site of unspecified female breast Qualifiers: Breast location: central portion of breast Estrogen receptor status: positive Patient sex: female Laterality: left Qualified Code(s): C50.112 - Malignant neoplasm of central portion of left female breast; Z17.0 - Estrogen receptor positive status [ER+] Plan 77-year-old female patient former Dr. Tucker patient with history of left breast infiltrating ductal carcinoma status post left breast lumpectomy with needle localization, sentinel node biopsy in 2012 followed by radiation therapy and tamoxifen for 5 years now on raloxifene. Her most recent mammogram of 01/31/2023 revealed no mammographic evidence of malignancy (BI-RADS 2). Routine screening mammogram is recommended in 1 year and has been scheduled at the [facility] on 02/02/2024. Exam today reveals no suspicious findings in either breast. Examination recommended in 1 year, sooner p.r.n.. Coding Level of Care Code Est Pt Level 3 (60875) Diagnoses Malignant neoplasm of central portion of left breast in female, estrogen receptor positive C50.112; Z17.0 Breast location: central portion of breast Estrogen receptor status: positive Patient sex: female Laterality: left
[2023-08-26 13:20] VITALS: BP 139/67; PULSE 74; BMI 19.1
== END 2023-08-26 13:31 | disposition home or self-care (01) ==
PROVIDERS: PCP Internal Medicine; Visit Provider Surgery
DX: C50.112 Malignant neoplasm of central portion of left female breast (principal); Z17.0 Estrogen receptor positive status [ER+]
CPT/HCPCS: 99213

== ENCOUNTER → 2023-08-26 13:06 | Outpatient (BNVA) | payer MEDICARE, SELFPAY | PROVIDERS: PCP Internal Medicine; Visit Provider Surgery | DX: C50.112 Malignant neoplasm of central portion of left female breast (principal); Z17.0 Estrogen receptor positive status [ER+] | CPT/HCPCS: 99212 ==

== ENCOUNTER 2023-11-22 07:05 | Outpatient (REF) | payer MEDICARE, SELFPAY ==
[2023-11-22 07:17] LABS: MANUAL DIFF FLAG NO
[2023-11-22 07:45] LABS: Basophils Percent Auto 0.6 % (0-2); Eosinophils Absolute Auto 0.3 X10*3/uL (0.0-0.4); Eosinophils Percent Auto 3.5 % (0-4); Hematocrit 41.3 % (37.0-47.0); Hemoglobin 13.9 g/dl (12.0-16.0); Imm Gran Abs Auto 0.02 X10*3/uL (0.00-0.03); Imm Gran Pct Auto 0.3 % (0.0-0.4); Lymphocytes Absolute Auto 2.1 X10*3/uL (1.2-4.9); Lymphocytes Percent Auto 29.7 % (20-40); Mean Corpuscular HGB Conc 33.7 g/dl (31.0-35.0); Mean Corpuscular Hemoglobin 32.6 pg (27.0-33.0); Mean Corpuscular Volume 96.9 fL (80.0-98.0); Mean Platelet Volume 10.7 fL (9.4-12.3); Monocytes Absolute Auto 0.5 X10*3/uL (0.1-1.2); Monocytes Percent Auto 7.2 % (2-11); Neutrophils Absolute Auto 4.1 x10*3/uL (2.0-8.3); Neutrophils Percent Auto 58.7 % (45-73); Platelet Count 249 X10*3/uL (160-400); Red Blood Count 4.26 X10*6/uL (4.20-5.50); Red Cell Distribution Width 13.8 % (11.0-16.0); White Blood Count 7.1 X10*3/uL (4.8-10.8)
[2023-11-22 08:09] LABS: Alanine Aminotransferase 15 U/L (0-31); Albumin Level 3.7 g/dL (3.5-5.0); Alkaline Phosphatase 69 U/L (39-117); Anion Gap 11 (12-20); Aspartate Amino Transferase 26 U/L (5-31); Bilirubin Total 0.5 mg/dL (0.0-1.0); Blood Urea Nitrogen 31 mg/dL (9-16); Calcium 9.8 mg/dL (8.4-10.2); Carbon Dioxide 28 mmol/L (22-29); Chloride 108 mmol/L (96-108); Cholesterol 170 mg/dL (<200); Estimated Glomerular Filt Rate 38; Glucose Fasting 84 mg/dL (60-99); HDL Cholesterol 80 mg/dL (>40); LDL Cholesterol Calculated 82 mg/dL (<100); Potassium 4.3 mmol/L (3.3-5.1); Sodium 143 mmol/L (135-145); Total Protein 6.9 g/dL (6.5-8.0); Triglycerides 44 mg/dL (<150)
[2023-11-22 08:59] LABS: Uric Acid 5.6 mg/dL (2.4-5.7)
== END 2023-11-22 07:06 | disposition home or self-care (01) ==
LOC: HO.LAB 07:05
PROVIDERS: PCP Internal Medicine; Visit Provider Internal Medicine
DX: E78.5 Hyperlipidemia, unspecified (principal); D64.9 Anemia, unspecified; N28.9 Disorder of kidney and ureter, unspecified; M10.9 Gout, unspecified
CPT/HCPCS: 36415; 80053; 80061; 84550; 85025

== ENCOUNTER 2023-12-07 09:22 | Outpatient (AMB) | payer MEDICARE, SELFPAY ==
[2023-12-07 09:24] VITALS: BP 128/72; PULSE 87; O2SAT 98; BMI 18.8
--- NOTE | 2023-12-07 09:24 | A.OFFPC_ITS ---
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: Not Required per policy Accompanied by: Self / Same As Patient Allergies No Known Allergies [No Known Allergies*] Allergy (Verified 12/07/23 09:24) Medication List - Last Reconciled 12/07/23 by Jordy Prescott MD allopurinol 100 mg PO DAILY aspirin 81 mg PO DAILY atorvastatin 40 mg PO DAILY cholecalciferol (vitamin D3) (Vitamin D3) 25 mcg PO DAILY raloxifene 60 mg PO DAILY Tobacco use date assessed: 12/07/23 Fall risk assessment: No Falls in past year Last assessed Fall Risk: 12/07/23 Dental Screening Dental Screen Date: 12/07/23 Did you have a dental visit in the last 12 months?: Yes Did you have a dental problem in the last 6 months where you did not have access to dental care?: No Was dental information given to patient?: Patient has dentist HPI 6mth f/u HPI Details hyperlip gout and restless leg syndrome; doing well on rx; dcompliant PFSH Medical History Hyperlipidemia Status post placement of implantable loop recorder CVA (cerebral vascular accident) Surgical History History of left breast biopsy (07/19/13) Hx of lumpectomy (08/17/13) Hx of colonoscopy (03/04/15) Hx of cataract extraction Family History Father COPD (chronic obstructive pulmonary disease) Mother Asthma Sister Breast cancer, Onset Age: 70 Maternal Grandfather Lung cancer Social History Household Members: Spouse and Children Housing: House Are you a primary continuum of care manager to a significant other at home: No Do you presently have visiting nurse or other home services: No Alcohol intake: never Patient Tobacco Use Status: Never used Tobacco e-Cigarette/Vaping Use: Never Used Second Hand Smoke Exposure: No service: No 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al status: retired 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 1. Little interest or pleasure in doing things: not at all 2. Feeling down, depressed, or hopeless: not at all 3. Trouble falling or staying asleep, or sleeping too much: not at all 4. Feeling tired or having little energy: not at all 5. Poor appetite or overeating: not at all 6. Feeling bad about yourself - or that you are a failure or have let yourself or your family down: not at all 7. Trouble concentrating on things, such as reading the newspaper or watching television: not at all 8. Moving or speaking so slowly that other people could have noticed. Or the opposite - being so fidgety or restless that you have been moving around a lot more than usual: not at all 9. Thoughts that you would be better off or of hurting yourself in some way: not at all Total score: 0 Depression Screening Interpretation: Negative Depression Screening Done: Yes 66655 - PHQ-9 Billing: Yes Source: Developed by Drs. Darren Arora, Nolvia Koroma, Cam Aviles and colleagues, with an educational paul from [employer]. Thrive Questionnaire Date Thrive assessed: 12/07/23 I am a: Patient What is your living situation today?: I have a steady place to live Within the past 12 months, did the food you bought not last and you didn't have the money to get more?: Never true Within the past 12 months, did you worry whether your food would run out before you got money to buy more?: Never true Do you have trouble paying for medicines?: No Do you have trouble getting transportation to medical appointments?: No Do you have trouble paying your heating and electricity bill?: No Do you have trouble taking care of your child, family member or friend?: No Do you have trouble with day-to-day activities such as bathing, preparing meals, shopping, managing finances, etc.?: No Are you currently unemployed and looking for a job?: No Are you interested in more education?: No Please select the resources that you would like help with: None THRIVE Score: 0 AUDIT C Alcohol Use Questionnaire (AUDIT-C) 1. How often do you have a drink containing alcohol?: Never Total Score: 0 Score Reviewed/Action Taken: Yes ROD-7 AMB Questionnaire ROD-7 Date ROD - 7 assessed: 12/07/23 Feeling nervous, anxious, or on edge: 0 = Not at all Not being able to stop or control worryin = Not at all Worrying too much about different things: 0 = Not at all Trouble relaxin = Not at all Being so restless that it is hard to sit still: 0 = Not at all Becoming easily annoyed or irritable: 0 = Not at all Feeling afraid as if something awful might happen: 0 = Not at all Total ROD-7 score (0-4 normal; 5-9 mild; 10-14 moderate; 15-21 severe): 0 Source: Developed by Drs. Darren Arora, Nolvia Koroma, Cam Aviles and colleagues, with an educational paul from [employer]. ROD-7 Assessment Billing ROD-7 Assessment Tool: ROD-7 Assessment 45895 Review of Systems Const Denies chills, Denies headache(s) and Denies weight loss ENT Denies headache(s) Card Denies chest pain, Denies syncope, Denies irregular heart rhythm and Denies dyspnea Resp Denies chest congestion, Denies cough and Denies dyspnea GI Denies abdominal pain, Denies change in stool character, Denies nausea and Denies vomiting Musc Denies deformity and Denies joint swelling Neuro Denies syncope and Denies headache(s) Physical exam (Primary Care) Vital Signs: Last Vital Signs Pulse 87 12/07/23 09:24 BP 128/72 12/07/23 09:24 Pulse Ox 98 12/07/23 09:24 Oxygen Delivery Method Room Air 12/07/23 09:24 BMI result Body Mass Index 18.8 Tobacco/Smoking Status: Tobacco use Status Tobacco use date assessed 12/07/23 12/07/23 09:25 Patient Tobacco Use Status Never used Tobacco 12/07/23 09:25 Tobacco use type 11/10/21 12:26 e-Cigarette/Vaping Use Never Used 12/07/23 09:25 PHQ-9: PHQ-9 Score PHQ-9: Total score 0 12/07/23 09:25 Depression Screening Interpretation: Negative Thrive Assessment: Date of Thrive Assessment Date Thrive assessed 12/07/23 12/07/23 09:25 Const General: cooperative, comfortable, no acute distress and alert Neck Neck: Yes no lymphadenopathy Thyroid: Thyroid normal Resp Effort & Inspection: normal respiratory effort Auscultation: clear to auscultation bilaterally Percussion: percussion normal Cardio Jugular venous distension: no JVD Palpation: normal PMI Rate: regular rate Rhythm: regular rhythm Heart sounds: S1 normal heart sound present and S2 normal heart sound present GI Inspection: Yes normal to inspection Palpation (GI): No hepatosplenomegaly present Skin General skin exam: no rashes or lesions noted Extrem General: Yes no clubbing, cyanosis or edema Assessment and Plan Assessment & Plan (1) Gout: Code(s): M10.9 - Gout, unspecified Plan: stable; same rx (2) Hyperlipidemia: Code(s): E78.5 - Hyperlipidemia, unspecified Plan: stable; same rx Coding Level of Care Code Est Pt Level 3 (70449) Diagnoses Gout M10.9 Hyperlipidemia E78.5 Additional Codes ROD-7 Assessment Billing - ROD-7 Assessment Tool: ROD-7 Assessment 42325 ([id number])
== END 2023-12-07 09:50 | disposition home or self-care (01) ==
PROVIDERS: PCP Internal Medicine; Visit Provider Internal Medicine
DX: M10.9 Gout, unspecified (principal); E78.5 Hyperlipidemia, unspecified
CPT/HCPCS: 99213

== ENCOUNTER 2024-02-02 09:26 | Outpatient (REF) | payer MEDICARE, SELFPAY ==
--- NOTE | ~2024-02-02 | MM_ITS ---
EXAMINATION: MM SCREENING DIGITAL BREAST TOMOSYNTHESIS, BILATERAL CLINICAL INFORMATION: Screening. Asymptomatic. The patient is status post left breast cancer surgery from 2012. COMPARISON: Mammography: This study is compared with prior exams dating back to 2019. TECHNIQUE: Digital breast tomosynthesis is performed in both the craniocaudal and mediolateral oblique views along with computer-aided detection (CAD). Synthesized 2D images are generated from the tomosynthesis. FINDINGS: The breasts are heterogeneously dense, which may obscure small masses (ACR BI-RADS breast composition Category c). There are no significant masses, abnormal calcifications, or other abnormalities. There are postsurgical changes in the upper-outer quadrant of the left breast. Few, benign calcifications are present in each breast. MM/MM tomosynthesis screening BI IMPRESSION: No mammographic evidence of malignancy. ASSESSMENT: BI-RADS BI-RADS 2 - Benign Findings RECOMMENDATION: Routine annual mammography screening. 1 year F/U This examination should not preclude the clinical evaluation of a suspicious palpable abnormality. This patient's information was entered into a reminder system with a target due date for their next mammogram.
== END 2024-02-02 09:27 | disposition home or self-care (01) ==
LOC: HO.MAMMO 09:26
PROVIDERS: PCP Internal Medicine; Visit Provider Internal Medicine
DX: Z12.31 Encounter for screening mammogram for malignant neoplasm of breast (principal)
CPT/HCPCS: 77063; 77067

== ENCOUNTER → 2024-02-02 09:45 | Outpatient (BNV) | payer MEDICARE, SELFPAY | PROVIDERS: PCP Internal Medicine; Visit Provider Radiology Diagnostic Radiology | DX: Z12.31 Encounter for screening mammogram for malignant neoplasm of breast (principal) | CPT/HCPCS: 77063; 77067 ==

== ENCOUNTER 2024-06-08 07:05 | Outpatient (REF) | payer MEDICARE, SELFPAY ==
[2024-06-08 07:15] LABS: MANUAL DIFF FLAG NO
[2024-06-08 07:26] LABS: Basophils Percent Auto 0.6 % (0-2); Eosinophils Absolute Auto 0.3 X10*3/uL (0.0-0.4); Eosinophils Percent Auto 5.1 % (0-4); Hematocrit 41.6 % (37.0-47.0); Imm Gran Abs Auto 0.02 X10*3/uL (0.00-0.03); Imm Gran Pct Auto 0.3 % (0.0-0.4); Lymphocytes Absolute Auto 1.9 X10*3/uL (1.2-4.9); Lymphocytes Percent Auto 27.8 % (20-40); Mean Corpuscular HGB Conc 33.7 g/dl (31.0-35.0); Mean Corpuscular Hemoglobin 33.4 pg (27.0-33.0); Mean Corpuscular Volume 99.3 fL (80.0-98.0); Mean Platelet Volume 10.4 fL (9.4-12.3); Monocytes Absolute Auto 0.4 X10*3/uL (0.1-1.2); Neutrophils Percent Auto 60.2 % (45-73); Platelet Count 273 X10*3/uL (160-400); Red Blood Count 4.19 X10*6/uL (4.20-5.50); Red Cell Distribution Width 13.7 % (11.0-16.0); White Blood Count 6.7 X10*3/uL (4.8-10.8)
[2024-06-08 07:44] LABS: Alanine Aminotransferase 14 U/L (0-31); Albumin Level 3.7 g/dL (3.5-5.0); Alkaline Phosphatase 71 U/L (39-117); Anion Gap 14 (12-20); Aspartate Amino Transferase 27 U/L (5-31); Bilirubin Total 0.5 mg/dL (0.0-1.0); Blood Urea Nitrogen 30 mg/dL (9-16); Calcium 10.3 mg/dL (8.4-10.2); Carbon Dioxide 29 mmol/L (22-29); Chloride 108 mmol/L (96-108); Estimated Glomerular Filt Rate 36; Glucose Random 87 mg/dL (60-115); Potassium 4.6 mmol/L (3.3-5.1); Sodium 146 mmol/L (135-145); Total Protein 6.8 g/dL (6.5-8.0)
[2024-06-11 17:10] LABS: CA 27.29 13 U/mL (<38)
== END 2024-06-08 07:06 | disposition home or self-care (01) ==
LOC: HO.LAB 07:05
PROVIDERS: PCP Internal Medicine; Visit Provider Internal Medicine Medical Oncology
DX: C50.919 Malignant neoplasm of unspecified site of unspecified female breast (principal)
CPT/HCPCS: 36415; 80053; 85025; 86300

== ENCOUNTER 2024-06-20 09:29 | Outpatient (AMB) | payer MEDICARE, SELFPAY ==
[2024-06-20 09:32] VITALS: BP 140/78; PULSE 69; O2SAT 94; BMI 18.6
--- NOTE | 2024-06-20 09:32 | MHC.PC.OV ---
Vital Signs 06/20/24 09:32 Height 5 ft 3 in Weight 105 lb BMI 18.6 BP 140/78 H Blood Pressure Location Lt brachial Position Sitting Pulse 69 Pulse Source Pulse Oximeter Pulse Oximetry (%) 94 Oxygen Delivery Method Room Air Intake Visit Reasons: 6 Month F/U [employer] Required: No Accompanied by: Self / Same As Patient Allergies No Known Allergies [No Known Allergies*] Allergy (Verified 06/20/24 09:32) Tobacco use date assessed: 12/07/23 Fall risk assessment: No Falls in past year Last assessed Fall Risk: 06/20/24 Dental Screening Dental Screen Date: 12/07/23 HPI 6 Month F/U HPI Details gout on rx; no recent attacks' feels wekl [facility] Medical History Hyperlipidemia Status post placement of implantable loop recorder CVA (cerebral vascular accident) Surgical History History of left breast biopsy (07/19/13) Hx of lumpectomy (08/17/13) Hx of colonoscopy (03/04/15) Hx of cataract extraction Family History Father COPD (chronic obstructive pulmonary disease) Mother Asthma Sister Breast cancer, Onset Age: 70 Maternal Grandfather Lung cancer Social History Household Members: Spouse and Children Housing: House Are you a primary manager of care to a significant other at home: No Do you presently have visiting nurse or other home services: No Alcohol intake: never Patient Tobacco Use Status: Never used Tobacco Tobacco use type: Cigarette e-Cigarette/Vaping Use: Never Used Second Hand Smoke Exposure: No service: No 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al status: retired 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 1. Little interest or pleasure in doing things: not at all 2. Feeling down, depressed, or hopeless: not at all 3. Trouble falling or staying asleep, or sleeping too much: not at all 4. Feeling tired or having little energy: not at all 5. Poor appetite or overeating: not at all 6. Feeling bad about yourself - or that you are a failure or have let yourself or your family down: not at all 7. Trouble concentrating on things, such as reading the newspaper or watching television: not at all 8. Moving or speaking so slowly that other people could have noticed. Or the opposite - being so fidgety or restless that you have been moving around a lot more than usual: not at all 9. Thoughts that you would be better off or of hurting yourself in some way: not at all Total score: 0 Depression Screening Interpretation: Negative Depression Screening Done: Yes 94798 - PHQ-9 Billing: Yes Source: Developed by Drs. Darren Arora, Nolvia Koroma, Cam Aviles and colleagues, with an educational paul from [employer]. Thrive Questionnaire Date Thrive assessed: 12/07/23 Are you currently unemployed and looking for a job?: No AUDIT C Alcohol Use Questionnaire (AUDIT-C) 1. How often do you have a drink containing alcohol?: Never Total Score: 0 Score Reviewed/Action Taken: Yes ROD-7 AMB Questionnaire ROD-7 Date ROD - 7 assessed: 12/07/23 Source: Developed by Drs. Darren Arora, Nolvia Koroma, Cam Aviles and colleagues, with an educational paul from [employer]. Review of Systems Const Denies chills, Denies headache(s) and Denies weight loss ENT Denies headache(s) Card Denies chest pain, Denies syncope, Denies irregular heart rhythm and Denies dyspnea Resp Denies chest congestion, Denies cough and Denies dyspnea GI Denies abdominal pain, Denies change in stool character, Denies nausea and Denies vomiting Musc Denies deformity and Denies joint swelling Neuro Denies syncope and Denies headache(s) Physical exam (Primary Care) Vital Signs: Last Vital Signs Pulse 69 06/20/24 09:32 BP 140/78 H 06/20/24 09:32 Pulse Ox 94 06/20/24 09:32 Oxygen Delivery Method Room Air 06/20/24 09:32 BMI result Body Mass Index 18.6 Tobacco/Smoking Status: Tobacco use Status Tobacco use date assessed 12/07/23 06/20/24 09:38 Patient Tobacco Use Status Never used Tobacco 06/20/24 09:38 Tobacco use type Cigarette 06/20/24 09:38 e-Cigarette/Vaping Use Never Used 06/20/24 09:38 PHQ-9: PHQ-9 Score PHQ-9: Total score 0 06/20/24 09:38 Depression Screening Interpretation: Negative Thrive Assessment: Date of Thrive Assessment Date Thrive assessed 12/07/23 06/20/24 09:38 Const General: cooperative, comfortable, no acute distress and alert Neck Neck: Yes no lymphadenopathy Thyroid: Thyroid normal Resp Effort & Inspection: normal respiratory effort Auscultation: clear to auscultation bilaterally Percussion: percussion normal Cardio Jugular venous distension: no JVD Palpation: normal PMI Rate: regular rate Rhythm: regular rhythm Heart sounds: S1 normal heart sound present and S2 normal heart sound present GI Inspection: Yes normal to inspection Palpation (GI): No hepatosplenomegaly present Skin General skin exam: no rashes or lesions noted Extrem General: Yes no clubbing, cyanosis or edema Assessment and Plan Assessment & Plan (1) Gout: Code(s): M10.9 - Gout, unspecified Plan: stable; same rx Orders: Orders Uric Acid Today M10.9 - Gout, unspecified Lipid Panel Today Z13.220 - Encounter for screening for lipoid disorders Coding Level of Care Code Est Pt Level 3 (07610) Diagnoses Gout M10.9
== END 2024-06-20 09:50 | disposition home or self-care (01) ==
PROVIDERS: PCP Internal Medicine; Visit Provider Internal Medicine
DX: M10.9 Gout, unspecified (principal)

== ENCOUNTER → 2024-06-20 09:29 | Outpatient (BNVA) | payer MEDICARE, SELFPAY | PROVIDERS: PCP Internal Medicine; Visit Provider Internal Medicine | DX: M10.9 Gout, unspecified (principal) | CPT/HCPCS: 99212 ==

== ENCOUNTER 2024-07-26 08:52 | Outpatient (REF) | payer MEDICARE, SELFPAY ==
--- NOTE | ~2024-07-26 | MM_ITS ---
EXAMINATION: BONE DENSITOMETRY CLINICAL INDICATION: Osteoporosis. COMPARISON: Previous BD dated 07/21/2022 and baseline BD dated 08/31/2013. TECHNIQUE: Using a [employer] Interactive DXA System (software version: 13.1) manufactured by [employer], dual-energy x-ray absorptiometry was performed of the lumbar spine and left hip. The images are of good technical quality. Summary results are attached. FINDINGS: LEFT FEMUR, NECK: Current: BMD 0.641 g/cm2, Z-score -0.4, T-score -2.9, osteoporosis. Prior: BMD 0.710 g/cm2. Baseline: BMD 0.691 g/cm2. LEFT FEMUR, TOTAL: Current: BMD 0.698 g/cm2, Z-score -0.1, T-score -2.5, osteoporosis, 1.0% decrease from previous, 2.8% decrease from baseline (<5% change is not significant). Prior: BMD 0.705 g/cm2. Baseline: BMD 0.718 g/cm2. AP SPINE L1-L4: Current: BMD 0.982 g/cm2, Z-score 0.7, T-score -1.7, osteopenia, 4.1% increase from previous, 11.1% increase from baseline (<5% change is not significant). Prior: BMD 0.943 g/cm2. Baseline: BMD 0.884 g/cm2. IDENTIFIED RISK FACTORS: Menopause, history of fracture (adult), low calcium intake, osteoporosis. HISTORY OF FRACTURE: Wrist. MEDICATIONS: Vitamin D, Evista. MM/XR DEXA axial skeleton IMPRESSION: 1. DIAGNOSIS: Severe osteoporosis based on the lowest T-score value of -2.9 in the femur neck and history of fracture of wrist applying World Health Organization criteria. 2. 10-YEAR FRACTURE RISK PREDICTION, FRAX: According to the guidelines, FRAX calculation should only be performed on patients in the osteopenia bone density category. Therefore, FRAX was not performed on this patient. 3. Treatment Recommendations: NOF guidelines recommend consideration for treatment in postmenopausal women and men age 50 and older presenting with the following: -A hip or vertebral (clinical or morphometric) fracture. -T-score less than or equal to -2.5 at the femoral neck or spine after appropriate evaluation to exclude secondary causes. -Low bone mass at the hip or spine and a 10-year fracture probability by FRAX of greater than or equal to 3% for hip fracture or greater than or equal to 20% for major osteoporotic fracture based on the [place] adapted WHO algorithm. 4. Other Recommendations: All treatment decisions require clinical judgment and consideration of individual patient factors, including patient preferences, comorbidities, previous drug use, risk factors not captured in the FRAX model (e.g. frailty, falls, vitamin D deficiency, increased bone turnover, interval significant decline in bone density) and possible under or overestimation of fracture risk by FRAX. Additional medical evaluation for secondary cause of low bone mineral density may be appropriate. FUTURE SCAN RECOMMENDATION: People with diagnosed cases of osteoporosis or at high risk for fracture should have regular bone mineral density tests. For patients eligible for Medicare, routine testing is allowed once every 2 years. The testing frequency can be increased to one year for patients who have rapidly progressing disease, those who are receiving or discontinuing medical therapy to restore bone mass, or have additional risk factors. Electronically signed by: Pratibha Romero MD 07/27/2024 08:52 AM EDT
== END 2024-07-26 08:53 | disposition home or self-care (01) ==
LOC: HO.MAMMO 08:52
PROVIDERS: PCP Internal Medicine; Visit Provider Internal Medicine Medical Oncology
DX: M81.0 Age-related osteoporosis without current pathological fracture (principal); M85.88 Other specified disorders of bone density and structure, other site
CPT/HCPCS: 77080

== ENCOUNTER 2024-08-28 09:48 | Outpatient (AMB) | payer MEDICARE, SELFPAY ==
--- NOTE | 2024-08-28 09:55 | MHC.OFFVIS ---
Vital Signs 08/28/24 10:05 Height 5 ft 3 in Weight 102 lb 8 oz BMI 18.2 BP 150/85 H Blood Pressure Location Lt brachial Position Sitting Pulse 72 Intake Visit Reasons: yearly breast exam Intake Note: Patient is seen in office for yearly breast exam. 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 She is a former patient of Dr. Tucker diagnosed with invasive ductal carcinoma of the left breast on 07/19/2013 on a stereotactic guided core biopsy. She subsequently underwent a left breast lumpectomy with sentinel node biopsy on 08/07/2013. Pathology revealed a 0.8 cm infiltrating ductal carcinoma, ER positive, W[place] negative, HER2 Sha negative. 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 She subsequently completed radiation therapy in October 2013 and was placed on tamoxifen for 5 years, completed in 2018 (Dr. Block). She was then placed on raloxifene which he remains on currently for her osteoporosis. Her most recent mammogram dated of 02/02/2024 revealed no mammographic evidence of malignancy (BI-RADS 2). She is scheduled for a follow-up mammogram on 02/11/2025. She feels well and denies any ongoing symptoms. [facility] Medical History Hyperlipidemia Status post placement of implantable loop recorder CVA (cerebral vascular accident) Surgical History History of left breast biopsy (07/19/13) Hx of lumpectomy (08/17/13) Hx of colonoscopy (03/04/15) Hx of cataract extraction Family History Father COPD (chronic obstructive pulmonary disease) Mother Asthma Sister Breast cancer, Onset Age: 70 Maternal Grandfather Lung cancer Social History Household Members: Spouse and Children Housing: House Are you a primary patient care provider to a significant other at home: No Do you presently have visiting nurse or other home services: No Alcohol intake: never Patient Tobacco Use Status: Never used Tobacco Tobacco use type: Cigarette e-Cigarette/Vaping Use: Never Used Second Hand Smoke Exposure: No service: No 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al status: retired 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: Rt handed Cognitive needs: No Hearing needs: Yes (Hearing aids.) Vision needs: No Review of Systems Const Denies chills, Denies fever(s), Denies headache(s) and Denies poor appetite ENT Denies dizziness and Denies headache(s) Card Denies chest pain, Denies rapid heart rate, Denies palpitations and Denies slow heart rate Resp Denies chest congestion, Denies cough, Denies pain on inspiration and Denies wheezing GI Denies abdominal pain, Denies bloating, Denies change in stool character, Denies constipation, Denies diarrhea, Denies nausea, Denies vomiting and Denies hematemesis Denies nipple discharge Musc Denies back pain, Denies arthralgias, Denies joint swelling and Denies numbness Skin/Breast Denies breast skin changes, Denies breast pain, Denies breast mass, Denies change in breast shape, Denies change in pigmentation, Denies nipple discharge, Denies erythema and Denies rash Neuro Denies dizziness, Denies headache(s) and Denies numbness Psych Denies anxiety and Denies depression Endo Denies palpitations Isiah/Lymph Denies easy bleeding, Denies easy bruising and Denies lymphadenopathy Aller/Immun Denies wheezing Physical Exam Vital Signs: Last Vital Signs Pulse 72 08/28/24 10:05 BP 150/85 H 08/28/24 10:05 BMI result Body Mass Index 18.2 Const General: healthy appearing and no acute distress Nutritional Appearance: thin Orientation/consciousness: patient oriented x3 Limitations: no limitations HEENT Head: Yes normocephalic and Yes atraumatic Ears: hearing grossly normal bilaterally Eyes Sclerae: sclerae normal EOM: EOMs intact bilaterally Neck Neck: Yes normal visual inspection, Yes no lymphadenopathy and Yes trachea midline Thyroid: Thyroid normal Chest Other: Left breast: No skin change, no nipple retraction, no nipple discharge, no palpable mass, no enlarged lymph nodes. Left breast is somewhat stiffer compared to the right breast but no suspicious changes are appreciated. Right breast: No skin change, no nipple retraction, no nipple discharge, no palpable mass, no enlarged lymph nodes Resp Effort & Inspection: normal respiratory effort, no audible wheezes, no cough and no respiratory distress GI Inspection: Yes normal to inspection Skin General skin exam: no rashes or lesions noted Neuro Other: Mobility Assessment: 1. 3 meter assessment time (seconds) 6 2. Gait observations: Normal balance and gait General: patient oriented x3 Extrem General: Yes no clubbing, cyanosis or edema Assessment & Plan Assessment & Plan (1) Breast cancer: Code(s): C50.919 - Malignant neoplasm of unspecified site of unspecified female breast Category: Medical Qualifiers: Breast location: central portion of breast Estrogen receptor status: positive Patient sex: female Laterality: left Qualified Code(s): C50.112 - Malignant neoplasm of central portion of left female breast; Z17.0 - Estrogen receptor positive status [ER+] Plan 78-year-old female patient former Dr. Tucker patient with history of left breast infiltrating ductal carcinoma status post left breast lumpectomy with needle localization, sentinel node biopsy in 2012 followed by radiation therapy and tamoxifen for 5 years now on raloxifene. Her most recent mammogram of 02/02/2024 revealed no mammographic evidence of malignancy (BI-RADS 2). Routine screening mammogram is recommended in 1 year and has been scheduled at the [facility] on 02/11/2025. Exam today reveals no suspicious findings in either breast. Examination recommended in 1 year, sooner p.r.n.. Coding Level of Care Code Est Pt Level 3 (30535) Diagnoses Malignant neoplasm of central portion of left breast in female, estrogen receptor positive C50.112; Z17.0 Breast location: central portion of breast Estrogen receptor status: positive Patient sex: female Laterality: left
[2024-08-28 10:05] VITALS: BP 150/85; PULSE 72; BMI 18.2
== END 2024-08-28 10:19 | disposition home or self-care (01) ==
PROVIDERS: PCP Internal Medicine; Visit Provider Surgery
DX: C50.112 Malignant neoplasm of central portion of left female breast (principal); Z17.0 Estrogen receptor positive status [ER+]
CPT/HCPCS: 99213

== ENCOUNTER → 2024-08-28 09:48 | Outpatient (BNVA) | payer MEDICARE, SELFPAY | PROVIDERS: PCP Internal Medicine; Visit Provider Surgery | DX: C50.112 Malignant neoplasm of central portion of left female breast (principal); Z17.0 Estrogen receptor positive status [ER+] | CPT/HCPCS: 99212 ==

== ENCOUNTER 2024-11-20 06:58 | Outpatient (REF) | payer MEDICARE, SELFPAY ==
[2024-11-20 08:26] LABS: Cholesterol 165 mg/dL (<200); HDL Cholesterol 80 mg/dL (>40); LDL Cholesterol Calculated 77 mg/dL (<100); Triglycerides 43 mg/dL (<150); Uric Acid 5.6 mg/dL (2.4-5.7)
== END 2024-11-20 06:59 | disposition home or self-care (01) ==
LOC: HO.LAB 06:58
PROVIDERS: PCP Internal Medicine; Visit Provider Internal Medicine
DX: M10.9 Gout, unspecified (principal); Z13.220 Encounter for screening for lipoid disorders
CPT/HCPCS: 36415; 80061; 84550

== ENCOUNTER 2024-12-06 09:29 | Outpatient (AMB) | payer MEDICARE, SELFPAY ==
[2024-12-06 09:31] VITALS: BP 138/72; PULSE 75; O2SAT 95; BMI 18.6
--- NOTE | 2024-12-06 09:31 | MHC.PC.OV ---
Vital Signs 12/06/24 09:31 Height 5 ft 3 in Weight 105 lb BMI 18.6 BP 138/72 Blood Pressure Location Lt brachial Position Sitting Pulse 75 Pulse Source Pulse Oximeter Pulse Oximetry (%) 95 Oxygen Delivery Method Room Air Intake Visit Reasons: 6mth f/u Allergies No Known Allergies [No Known Allergies*] Allergy (Verified 12/06/24 09:32) Medication List - Last Reconciled 12/06/24 by Jordy Prescott MD allopurinol 100 mg PO DAILY aspirin 81 mg PO DAILY atorvastatin 40 mg PO DAILY cholecalciferol (vitamin D3) (Vitamin D3) 25 mcg PO DAILY raloxifene 60 mg PO DAILY Tobacco use date assessed: 12/06/24 Fall risk assessment: No Falls in past year Last assessed Fall Risk: 12/06/24 Dental Screening Dental Screen Date: 12/06/24 Did you have a dental visit in the last 12 months?: Yes Did you have a dental problem in the last 6 months where you did not have access to dental care?: No Was dental information given to patient?: Patient has dentist HPI 6mth f/u HPI Details hyperlipidemia and gout on rx; doing well; compliant [facility] Medical History Hyperlipidemia Status post placement of implantable loop recorder CVA (cerebral vascular accident) Surgical History History of left breast biopsy (07/19/13) Hx of lumpectomy (08/17/13) Hx of colonoscopy (03/04/15) Hx of cataract extraction Family History Father COPD (chronic obstructive pulmonary disease) Mother Asthma Sister Breast cancer, Onset Age: 70 Maternal Grandfather Lung cancer Social History Household Members: Spouse and Children Housing: House Are you a primary residential care officer to a significant other at home: No Do you presently have visiting nurse or other home services: No Alcohol intake: never Patient Tobacco Use Status: Never used Tobacco Tobacco use type: Cigarette e-Cigarette/Vaping Use: Never Used Second Hand Smoke Exposure: No service: No 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al status: retired 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 1. Little interest or pleasure in doing things: not at all 2. Feeling down, depressed, or hopeless: not at all 3. Trouble falling or staying asleep, or sleeping too much: not at all 4. Feeling tired or having little energy: not at all 5. Poor appetite or overeating: not at all 6. Feeling bad about yourself - or that you are a failure or have let yourself or your family down: not at all 7. Trouble concentrating on things, such as reading the newspaper or watching television: not at all 8. Moving or speaking so slowly that other people could have noticed. Or the opposite - being so fidgety or restless that you have been moving around a lot more than usual: not at all 9. Thoughts that you would be better off or of hurting yourself in some way: not at all Total score: 0 Depression Screening Interpretation: Negative Depression Screening Done: Yes 00234 - PHQ-9 Billing: Yes Source: Developed by Drs. Darren Arora, Nolvia Koroma, Cam Aviles and colleagues, with an educational paul from [employer]. Thrive Questionnaire Date Thrive assessed: 12/06/24 I am a: Patient What is your living situation today?: I have a steady place to live Within the past 12 months, did the food you bought not last and you didn't have the money to get more?: Never true Within the past 12 months, did you worry whether your food would run out before you got money to buy more?: Never true Do you have trouble paying for medicines?: No Do you have trouble getting transportation to medical appointments?: No Do you have trouble paying your heating and electricity bill?: No Do you have trouble taking care of your child, family member or friend?: No Do you have trouble with day-to-day activities such as bathing, preparing meals, shopping, managing finances, etc.?: No Are you currently unemployed and looking for a job?: No Are you interested in more education?: No Currently or been in a relationship where the following occur: No concerns reported THRIVE Score: 0 AUDIT C Alcohol Use Questionnaire (AUDIT-C) 1. How often do you have a drink containing alcohol?: Never Total Score: 0 Score Reviewed/Action Taken: Yes ROD-7 AMB Questionnaire ROD-7 Date ROD - 7 assessed: 12/06/24 Feeling nervous, anxious, or on edge: 0 = Not at all Not being able to stop or control worryin = Not at all Worrying too much about different things: 0 = Not at all Trouble relaxin = Not at all Being so restless that it is hard to sit still: 0 = Not at all Becoming easily annoyed or irritable: 0 = Not at all Feeling afraid as if something awful might happen: 0 = Not at all Total ROD-7 score (0-4 normal; 5-9 mild; 10-14 moderate; 15-21 severe): 0 Source: Developed by Drs. Darren Arora, Nolvia Koroma, Cam Aviles and colleagues, with an educational paul from [employer]. Review of Systems Const Denies chills, Denies headache(s) and Denies weight loss ENT Denies headache(s) Card Denies chest pain, Denies syncope, Denies irregular heart rhythm and Denies dyspnea Resp Denies chest congestion, Denies cough and Denies dyspnea GI Denies abdominal pain, Denies change in stool character, Denies nausea and Denies vomiting Musc Denies deformity and Denies joint swelling Neuro Denies syncope and Denies headache(s) Physical exam (Primary Care) Vital Signs: Last Vital Signs Pulse 75 12/06/24 09:31 BP 138/72 12/06/24 09:31 Pulse Ox 95 12/06/24 09:31 Oxygen Delivery Method Room Air 12/06/24 09:31 BMI result Body Mass Index 18.6 Tobacco/Smoking Status: Tobacco use Status Tobacco use date assessed 12/06/24 12/06/24 09:36 Patient Tobacco Use Status Never used Tobacco 12/06/24 09:36 Tobacco use type Cigarette 12/06/24 09:36 e-Cigarette/Vaping Use Never Used 12/06/24 09:36 PHQ-9: PHQ-9 Score PHQ-9: Total score 0 12/06/24 09:36 Depression Screening Interpretation: Negative Thrive Assessment: Date of Thrive Assessment Date Thrive assessed 12/06/24 12/06/24 09:36 Currently or been in a relationship where the following occur: No concerns reported Const General: cooperative, comfortable, no acute distress and alert Neck Neck: Yes no lymphadenopathy Thyroid: Thyroid normal Resp Effort & Inspection: normal respiratory effort Auscultation: clear to auscultation bilaterally Percussion: percussion normal Cardio Jugular venous distension: no JVD Palpation: normal PMI Rate: regular rate Rhythm: regular rhythm Heart sounds: S1 normal heart sound present and S2 normal heart sound present GI Inspection: Yes normal to inspection Palpation (GI): No hepatosplenomegaly present Skin General skin exam: no rashes or lesions noted Extrem General: Yes no clubbing, cyanosis or edema Coding Level of Care Code Est Pt Level 3 (72260) Diagnoses Hyperlipidemia E78.5 Additional Codes PHQ-9 - 38831 - PHQ-9 Billing: Yes ([id number]) Assessment & Plan Assessment & Plan (1) Hyperlipidemia: Code(s): E78.5 - Hyperlipidemia, unspecified Category: Medical Plan: stable; same rx
== END 2024-12-06 09:45 | disposition home or self-care (01) ==
LOC: HO.HMCH 09:29
PROVIDERS: PCP Internal Medicine; Visit Provider Internal Medicine
DX: E78.5 Hyperlipidemia, unspecified (principal)

== ENCOUNTER → 2024-12-06 09:29 | Outpatient (BNVA) | payer MEDICARE, SELFPAY | PROVIDERS: PCP Internal Medicine; Visit Provider Internal Medicine | DX: E78.5 Hyperlipidemia, unspecified (principal) | CPT/HCPCS: 96127; 99212 ==

== ENCOUNTER 2025-02-11 08:39 | Outpatient (REF) | payer MEDICARE, SELFPAY | END 2025-02-11 08:40 | disposition home or self-care (01) | LOC: HO.MAMMO 08:39 | PROVIDERS: Visit Provider Internal Medicine | DX: Z12.31 Encounter for screening mammogram for malignant neoplasm of breast (principal) | CPT/HCPCS: 77063; 77067 ==

== ENCOUNTER → 2025-02-11 09:00 | Outpatient (BNV) | payer MEDICARE, SELFPAY | PROVIDERS: Visit Provider Internal Medicine | DX: Z12.31 Encounter for screening mammogram for malignant neoplasm of breast (principal) | CPT/HCPCS: 77063; 77067 ==

== ENCOUNTER 2025-06-11 09:55 | Outpatient (AMB) | payer MEDICARE, SELFPAY ==
--- NOTE | 2025-06-11 10:00 | A.OFFPC_ITS ---
Vital Signs 06/11/25 10:03 Height 5 ft 3 in Weight 104 lb 4 oz BMI 18.5 BP 134/82 Blood Pressure Location Lt brachial Position Sitting Pulse 70 Pulse Source Pulse Oximeter Pulse Oximetry (%) 96 Oxygen Delivery Method Room Air Intake Visit Reasons: MYLENE LAI/6 MONTH FOLLLOW UP Program Manager Environmental Planning Required: No Accompanied by: Self / Same As Patient Allergies No Known Allergies (No Known Allergies*) Allergy (Verified 06/11/25 10:11) Medication List - Last Reconciled 06/11/25 by Milly Momin PA-C allopurinol 100 mg PO DAILY aspirin 81 mg PO DAILY atorvastatin 40 mg PO DAILY cholecalciferol (vitamin D3) (Vitamin D3) 25 mcg PO DAILY raloxifene 60 mg PO DAILY Tobacco use date assessed: 06/11/25 Fall risk assessment: No Falls in past year Last assessed Fall Risk: 06/11/25 Dental Screening Dental Screen Date: 06/11/25 Did you have a dental visit in the last 12 months?: Yes Did you have a dental problem in the last 6 months where you did not have access to dental care?: No Was dental information given to patient?: Patient has dentist HPI MYLENE LAINER/6 MONTH FOLLLOW UP HPI Details 79-year-old female history of CVA, breas t cancer, hyperlipidemia, osteoporosis last seen 11/2024 coming in for transfer care.? Patient was seen by Hematology 11/2024 continued on raloxifene and referred to endocrinology for osteoporosis and advised to follow up in 1 year. Presenting with osteoporosis management and preventative care. Osteoporosis Danielle ged with raloxifene; regular bone density tests conducted. Gout Controlled with allopurinol and baxter juice; previous attack managed with medication. Hearing loss, Uses hearing aids; regular ear cleanings performed. History of stroke in 2019; no ongoing issues reported. [facility], [facility] Medical History Left wrist fracture Fracture of left distal radius Hyperlipidemia Status post placement of implantable loop recorder CVA (cerebral vascular accident) Surgical History History of left breast biopsy (07/19/13) Hx of lumpectomy (08/17/13) Hx of colonoscopy (06/09/15) Hx of cataract extraction Family History Father COPD (chronic obstructive pulmonary disease) Mother Asthma Sister Breast cancer, Onset Age: 70 Maternal Grandfather Lung cancer Social History Household Members: Spouse and Children Housing: House Are you a primary animal care giver to a significant other at home: No Do you presently have visiting nurse or other home services: No Alcohol intake: never Patient Tobacco Use Status: Never used Tobacco Tobacco use type: Cigarette e-Cigarette/Vaping Use: Never Used Second Hand Smoke Exposure: No service: No 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al status: retired 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 1. Little interest or pleasure in doing things: not at all 2. Feeling down, depressed, or hopeless: not at all 3. Trouble falling or staying asleep, or sleeping too much: not at all 4. Feeling tired or having little energy: not at all 5. Poor appetite or overeating: not at all 6. Feeling bad about yourself - or that you are a failure or have let yourself or your family down: not at all 7. Trouble concentrating on things, such as reading the newspaper or watching television: not at all 8. Moving or speaking so slowly that other people could have noticed. Or the opposite - being so fidgety or restless that you have been moving around a lot more than usual: not at all 9. Thoughts that you would be better off or of hurting yourself in some way: not at all Total score: 0 Depression Screening Interpretation: Negative Depression Screening Done: Yes Source: Developed by Drs. Darren Arora, Nolvia Koroma, Cam Aviles and colleagues, with an educational paul from [employer]. Thrive Questionnaire Date Thrive assessed: 12/06/24 ROD-7 AMB Questionnaire ROD-7 Date ROD - 7 assessed: 12/06/24 Feeling nervous, anxious, or on edge: 0 = Not at all Not being able to stop or control worryin = Not at all Worrying too much about different things: 0 = Not at all Trouble relaxin = Not at all Being so restless that it is hard to sit still: 0 = Not at all Becoming easily annoyed or irritable: 0 = Not at all Feeling afraid as if something awful might happen: 0 = Not at all Total ROD-7 score (0-4 normal; 5-9 mild; 10-14 moderate; 15-21 severe): 0 Source: Developed by Drs. Darren Arora, Nolvia Koroma, Cam stack nd colleagues, with an educational paul from [employer]. Review of Systems Const Denies body aches, Denies chills, Denies fever(s), Denies headache(s) and Denies poor appetite Eyes Reports no additional complaints ENT Denies dizziness and Denies headache(s) Card Denies chest pain, Denies edema, Denies irregular heart rhythm, Denies lightheadedness and Denies dyspnea Resp Denies dyspnea GI Denies abdominal pain, Denies nausea and Denies vomiting Reports no additional complaints Musc Reports no additional complaints and Denies abnormal gait Skin/Breast Reports system reviewed and no additional complaints, except as documented Neuro Denies abnormal gait, Denies dizziness and Denies headache(s) Psych Reports no additional complaints Physical exam (Primary Care) Vital Signs: Last Vital Signs Pulse 70 06/11/25 10:03 BP 134/82 06/11/25 10:03 Pulse Ox 96 06/11/25 10:03 Oxygen Delivery Method Room Air 06/11/25 10:03 BMI result Body Mass Index 18.5 Tobacco/Smoking Status: Tobacco use Status Tobacco use date assessed 06/11/25 06/11/25 10:05 Patient Tobacco Use Status Never used Tobacco 06/11/25 10:05 Tobacco use type Cigarette 06/11/25 10:05 e-Cigarette/Vaping Use Never Used 06/11/25 10:05 PHQ-9: PHQ-9 Score PHQ-9: Total score 0 06/11/25 10:24 Depression Screening Interpretation: Negative Thrive Assessment: Date of Thrive Assessment Date Thrive assessed 12/06/24 06/11/25 10:05 Const General: cooperative, healthy appearing, comfortable and no acute distress Orientation/consciousness: patient oriented x3 HENMT Head: Yes normocephalic Ears: hearing grossly normal bilaterally and Abnormal EAC present excessive cerumen on the left General nose exam: Normal external nose present Eyes General: appearance normal, both eyes and all related structures Conjunctivae: conjunctivae normal Neck Neck: Yes full ROM and Yes no lymphadenopathy Resp Effort & Inspection: normal respiratory effort Auscultation: clear to auscultation bilaterally, no crackles, no rales, no rhonchi and no wheezes Cardio Rate: regular rate Rhythm: regular rhythm Skin General skin exam: no rashes or lesions noted Neuro General: patient oriented x3 Gait exam (Neuro): Normal gait present Extrem General: Yes normal to inspection, Yes full ROM and No edema Psych Affect: normal affect Attitude: cooperative Insight: Good insight present (Psych) Judgement: Good judgement present (Psych) Coding Level of Care Code Est Pt Level 3 (34338) Diagnoses Osteoporosis M81.0 Hyperlipidemia E78.5 Malignant neoplasm of central portion of left breast in female, estrogen receptor positive C50.112; Z17.0 Breast location: central portion of breast Estrogen receptor status: positive Laterality: left Patient sex: female CVA (cerebral vascular accident) I63.9 Gout M10.9 Excessive cerumen in ear canal H61.20 Assessment & Plan Assessment & Plan (1) Osteoporosis: Code(s): M81.0 - Age-related osteoporosis without current pathological fracture Category: Medical Plan: The patient is advised to follow up with an player development manager for further risk stratification and management of osteoporosis. Raloxifene is currently being used for treatment, and regular bone density tests are conducted. (2) Hyperlipidemia: Code(s): E78.5 - Hyperlipidemia, unspecified Category: Medical Plan: Avoid foods that are high in cholesterol such as red meat, fried foods, eggs and baked goods. Triglyceride goal of less than 150 and LDL goal of less than 70. C ontinue on atorvastatin 40. Ordered for repeat blood work (3) Breast cancer: Code(s): C50.919 - Malignant neoplasm of unspecified site of unspecified female breast Category: Medical Qualifiers: Breast location: central portion of breast Estrogen receptor status: positive Laterality: left Patient sex: female Qualified Code(s): C50.112 - Malignant neoplasm of central portion of left female breast; Z17.0 - Estrogen receptor positive status [ER+] Plan: Patient is currently following with Dr. Block from Hematology/Oncology and advised to follow up yearly at her last visit. She also has annual breast exams with Dr. Gregg. 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 She continues on aspirin 81 mg daily and no longer follows with Neurology. (5) Gout: Code(s): M10.9 - Gout, unspecified Category: Medical Plan: The patient's gout is well-controlled with allopurinol and baxter juice. A previous gout attack was effectively managed with medication. (6) Excessive cerumen in ear canal: Code(s): H61.20 - Impacted cerumen, unspecified ear Category: Medical Plan: Patient was previously being seen by Dr. Murphy who recently retired. She was following with ear cleanings every 6 months. Our office we will maintain her ear cleanings every 6 months along with a follow up. Plan This note was constructed using voice recognition software. While every effort has been made to ensure accuracy and cytology supervisor, still areas may have been included sometimes these areas may affect the content or meeting of the given symptoms. Total time spent caring for the patient today was 30 minutes. This includes time spent before the visit reviewing the chart, time spent during the visit, and time spent after the visit and documentation. Patient was informed and verbally consented to the use of an ambient scribe for clinic note documentation during this visit. Orders: Orders Lipid Panel Today E78.00 - Pure hypercholesterolemia, unspecified Uric Acid Today M10.9 - Gout, unspecified TSH reflex Free T4 Today Z13.29 - Encounter for screening for other suspected endocrine disorder Vitamin B12 and Folate Today Z13.21 - Encounter for screening for nutritional disorder Vitamin D 25-OH Total Today Z13.21 - Encounter for screening for nutritional disorder Referrals Endocrinology Referral M81.0 - Age-related osteoporosis without current pathological fracture
[2025-06-11 10:03] VITALS: BP 134/82; PULSE 70; O2SAT 96; BMI 18.5
== END 2025-06-11 10:45 | disposition home or self-care (01) ==
LOC: HO.HMCH 09:56
PROVIDERS: PCP Internal Medicine
DX: M81.0 Age-related osteoporosis without current pathological fracture (principal); C50.112 Malignant neoplasm of central portion of left female breast; I63.9 Cerebral infarction, unspecified; H61.22 Impacted cerumen, left ear; E78.5 Hyperlipidemia, unspecified; Z17.0 Estrogen receptor positive status [ER+]; M10.9 Gout, unspecified

== ENCOUNTER → 2025-06-11 09:55 | Outpatient (BNVA) | payer MEDICARE, SELFPAY | PROVIDERS: PCP Internal Medicine | DX: M81.0 Age-related osteoporosis without current pathological fracture (principal); E78.5 Hyperlipidemia, unspecified; C50.112 Malignant neoplasm of central portion of left female breast; H61.20 Impacted cerumen, unspecified ear; E78.00 Pure hypercholesterolemia, unspecified; M10.9 Gout, unspecified; Z17.0 Estrogen receptor positive status [ER+]; Z86.73 Personal history of transient ischemic attack (TIA), and cerebral infarction without residual deficits; Z79.899 Other long term (current) drug therapy | CPT/HCPCS: 96127; 99212 ==

== ENCOUNTER 2025-06-19 07:36 | Outpatient (REF) | payer MEDICARE, SELFPAY ==
[2025-06-19 09:37] LABS: Cholesterol 179 mg/dL (<200); HDL Cholesterol 80 mg/dL (>40); Triglycerides 43 mg/dL (<150)
[2025-06-19 10:10] LABS: Folate 10.8 ng/mL (> or = 4.0); Vitamin B12 482 pg/mL (200-900)
[2025-06-19 11:10] LABS: Uric Acid 6.0 mg/dL (2.4-5.7)
== END 2025-06-19 07:37 | disposition home or self-care (01) ==
LOC: HO.LAB 07:36
DX: E78.00 Pure hypercholesterolemia, unspecified (principal); M10.9 Gout, unspecified; Z13.29 Encounter for screening for other suspected endocrine disorder; Z13.21 Encounter for screening for nutritional disorder
CPT/HCPCS: 36415; 80061; 82306; 82607; 82746; 84443; 84550

== ENCOUNTER 2025-07-10 10:24 | Outpatient (AMB) | payer MEDICARE, SELFPAY ==
--- NOTE | 2025-07-10 11:02 | AM.OFFVISNUR ---
Intake Visit Reasons: Flu shot Allergies No Known Allergies (No Known Allergies*) Allergy (Verified 06/11/25 10:11) Office Procedures Flu Questionnaire Does the patient have a severe egg allergy?: No Does the patient have severe life threatening allergies?: No Does the patient have a fever or illness today?: No Has the patient ever had Guillain-[place] Syndrome?: No Has the patient ever had any past reaction to a flu shot?: No Immunizations Fluarix [id number] (PF) 45 mcg (15 mcg x 3)/0.5 mL IM syringe Performing Provider: Milly Momin PA-C [facility] Administered by: Glo Gray LPN on 07/10/25 11:02 Dose Route Admin Location Dispensed Lot Number Expiration Date [facility] Lineman 0.5 mL IM Right Deltoid 0.5 mL [id number] 03/25/26 [id number] Given Date VIS Provided VIS Publication Date 07/10/25 Single Vaccine 24 Eligibility Eligibility Date Funding Source Not [facility] Eligible 07/10/25 Private Assessment & Plan Assessment & Plan Orders: Orders Influenza [id number] Immunization Today Z23 - Encounter for immunization Coding
== END 2025-07-10 11:03 | disposition home or self-care (01) ==
LOC: HO.HMCH 10:25
DX: Z23 Encounter for immunization (principal)

== ENCOUNTER → 2025-07-10 10:24 | Outpatient (BNVA) | payer MEDICARE, SELFPAY | DX: Z23 Encounter for immunization (principal) | CPT/HCPCS: 90471; 90656 ==

== ENCOUNTER 2025-07-14 07:47 | Emergency (ER) | payer MEDICARE, SELFPAY ==
--- NOTE | ~2025-07-14 | XR_ITS ---
CLINICAL HISTORY: rt hand injury 3 view right hand Comparison: None provided Findings: Bones intact. No dislocations. No significant loss of joint space or osteophytes. No erosions. No radiopaque foreign body. IMPRESSION: 1. No acute findings This document has been electronically signed by: Jose Elias Barreto MD on 07/14/2025 09:30:16
[2025-07-14 07:52] VITALS: BP 189/95; PULSE 84; RESP 16; TEMP 36.3; O2SAT 99; BMI 17.7
[2025-07-14 09:24] VITALS: BP 171/82; PULSE 66; RESP 18; O2SAT 99
--- NOTE | 2025-07-14 09:25 | PC.NURSE ---
79 F presents to ED with R hand injury from slamming hand in toolbox. 5/10 pain, CSMs present but painful to move fingers. Pt denies CP or SOB. RR even and unlabored. Pt is A+Ox4. Pt ambulates without devices.
--- NOTE | 2025-07-14 09:29 | ED_ITS ---
HPI - Extremity Problem General Chief complaint: Extremity Injury, Upper Stated complaint: Right hand injury Time Seen by Provider: 07/14/25 09:19 Source: patient and family () Mode of arrival: ambulatory Limitations: no limitations History of Present Illness ED Provider: STEFANIE HILARIO PA-C HPI Narrative: 79 year old female with pmhx significant for CVA, breast cancer, gout presents to the ED today with her for evaluation of right hand pain x yesterday. Patient states the lid from her 's half open tool box slammed down onto the back of her right hand while it was shelter open. Admits to associated skin tear that she washed out and applied bacitracin to. Denies any active bleeding. No thinners. She has not trialed any OTC pain meds. Unsure of tetanus status. Denies any difficulty moving her fingers/wrist. No numbness/tingling. Related Data Home Medications ?Medication ?Instructions ?Recorded ?Confirmed aspirin 81 mg tablet 81 mg PO DAILY 06/30/2005/27 cholecalciferol (vitamin D3) 25 25 mcg PO DAILY 06/11/25 mcg (1,000 unit) tablet (Vitamin D3) Previous Rx's ?Medication ?Instructions ?Recorded raloxifene 60 mg tablet 60 mg PO DAILY #90 tabs 10/20 atorvastatin 80 mg tablet (Lipitor) 80 mg PO BEDTIME # 90 tabs 06/20/25 allopurinol 100 mg tablet 100 mg PO DAILY #90 tabs Allergies Allergy/AdvReac Type Severity Reaction Status Date / Time No Known Allergies (No Known Allergy Verified 07/14/25 07:56 Allergies*) Review of Systems Review of Systems: Yes all other systems are reviewed and are negative [facility] Past Medical History Attestation statement: The following information was validated with the patient. Source: old records reviewed and nursing notes reviewed Medical History Left wrist fracture Fracture of left distal radius Hyperlipidemia Status post placement of implantable loop recorder CVA (cerebral vascular accident) Surgical History History of left breast biopsy (07/19/13) Hx of lumpectomy (08/17/13) Hx of colonoscopy (03/04/15) Hx of cataract extraction Family History Family History Father COPD (chronic obstructive pulmonary disease) Mother Asthma Sister Breast cancer, Onset Age: 70 Maternal Grandfather Lung cancer Social History Social History Household Members: Spouse and Children Housing: House Are you a primary career placement services counselor to a significant other at home: No Do you presently have visiting nurse or other home services: No Alcohol intake: never Patient Tobacco Use Status: Never used Tobacco Tobacco use type: Cigarette Smoked in Last 30 Days: No e-Cigarette/Vaping Use: Never Used Second Hand Smoke Exposure: No Use of substances other than those prescribed or required for medical reasons: No Advance Directives: No Advance Directives Information Provided: Yes Do you have a plan to hurt others: No Plan service: No 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al status: retired 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: Rt handed Cognitive needs: No Hearing needs: Yes (Hearing aids.) Vision needs: No Physical Exam Vital Signs: Vital Signs: Last Vital Signs Temp 0 F L 07/14/25 10:07 Pulse 66 07/14/25 10:07 Resp 18 07/14/25 10:07 BP 171/82 H 07/14/25 10:07 Pulse Ox 99 07/14/25 10:07 O2 Del Method Room Air 07/14/25 10:07 BMI result Body Mass Index 17.7 hypertensive, vitals are otherwise wnl General: Well appearing, in no acute distress. Skin: Warm, dry, intact. No rashes or lesions. Head: Normocephalic, atraumatic. EENT: Hearing is intact b/l. Conjunctiva clear. PERRLA. EOM intact. Moist mucous membranes.? Cardiac: Chest wall symmetric. RRR Lungs: Normal respiratory effort without accessory muscle use. CTA bilaterally Back: No midline spinous or paraspinal tenderness. No step off deformity. Ext +no deformity or swelling noted to right hand/wrist. there is a small skin tear to dorsal right hand, no active bleeding or erythema. FROM intact to all digits on right hand/ right wrist. no warmth, fluctuance, tenderness, crepitus. 2+ radial pulse intact. finger strength intact. 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 Neuro: AOx3. Normal speech. Ambulating with steady gait. Course Course Course Narrative: X-ray right hand unremarkable. No fracture. Patient's skin tear cleansed thoroughly with saline and iodine. Repaired with 3 Steri-Strips. No active bleeding. She has full ROM intact to right hand/digits. NV intact. She is unsure of last tetanus so she received Tdap booster today. Advised follow up with PCP as needed. Patient has remained stable throughout ED visit today. Discussed worrisome signs and symptoms and when to return to the ED. All questions answered at this time. Patient is agreeable with disposition and stable for discharge. Medications Administered Discontinued Medications Generic Name Dose Route Start Last Admin Trade Name Freq PRN Reason Stop Dose Admin Diphtheria/Tetanus/Acell Pertussis 0.5 ml 07/14/25 09:49 07/14/25 10:05 Diphth,Pertus(Acell),Tet Adult 0.5 Ml Syringe IM 07/14/25 09:50 0.5 ml .ONCE ONE Administration Medical Decision Making Medical Decision Making MDM Narrative: 79 year old female with pmhx significant for CVA, breast cancer, gout presents to the ED today with her for evaluation of right hand pain x yesterday. hypertensive, vitals are otherwise wnl. afebrile. she is well appearing and in NAD. on exam, no deformity or swelling noted to right hand/wrist. there is a small skin tear to dorsal right hand, no active bleeding or erythema. FROM intact to all digits on right hand/ right wrist. no warmth, fluctuance, tenderness, crepitus. 2+ radial pulse intact. finger strength intact. 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 Differential diagnosis includes contusion, abrasion, skin tear, laceration, fracture, dislocation Unlikely cellulitis, NV compromise, threat to limb, compartment syndrome. Plan for xrays, tdap booster, and disposition. Differential Diagnosis Differential Diagnoses: The differential diagnosis associated with the presentation includes as above. Admission/Observation not indicated. Independent Interpretation I performed an independent interpretation of an: Plain X-Ray Interpretation: xr right hand without fracture Radiology Impression Discussion of test interpretation with radiology: I have reviewed the radiologist's reading. Radiologist Impression: Procedure(s): XR hand RT min 3V Accession Number(s): [id number] cc: Milly Momin PA-C; Denys Wong DO~ Reason for Exam: rt hand injury CLINICAL HISTORY: rt hand injury 3 view right hand Comparison: None provided Findings: Bones intact. No dislocations. No significant loss of joint space or osteophytes. No erosions. No radiopaque foreign body. IMPRESSION: 1. No acute findings This document has been electronically signed by: Jose Elias Barreto MD on 07/14/2025 09:30:16 Independent Historian Clinical information obtained from an independent historian. History obtained from or confirmed by: Spouse () External Record Review External record reviewed: Inpatient record Social Determinants Patient?s care significantly limited by Social Determinants of Health including: Other Social Determinant of Health Procedures Laceration Laceration 1: Site: hand Side (If applicable): right Size (cm): 2 Description: other (U SHAPED) Depth: simple, single layer Pre-repair: wound explored Skin layer closed with: steri-strips Number of closing items:: 3 Critical Care Time Critical Care Time Critical Care Time: No Discharge Plan Discharge Clinical Impression: Contusion of hand, right, Skin tear of right upper extremity Patient Disposition: Home, Self-Care Instructions: Diphtheria/Tetanus Vaccine (By injection), Skin Adhesive Strips (ED) Additional Instructions: You were evaluated in the ED today for a contusion to your right hand. Your x-ray does not demonstrate any fracture. You have a small skin tear to your right hand. This was cleansed and repaired with Steri-Strips today. Do not pick at these. These will fall off on their own. You may gently wash your hands and pat to dry. Your tetanus vaccination was updated today and should be valid for 10 years. Follow up with your primary care provider as needed. Return with any new or worsening symptoms. In the case of an emergency call 911. Prescriptions: No Action atorvastatin [Lipitor] 80 mg tablet 80 mg PO BEDTIME Qty: 90 2RF allopurinol 100 mg tablet 100 mg PO DAILY Qty: 90 0RF aspirin 81 mg Tablet 81 mg PO DAILY cholecalciferol (vitamin D3) [Vitamin D3] 25 mcg (1,000 unit) Tablet 25 mcg PO DAILY raloxifene 60 mg Tablet 60 mg PO DAILY Qty: 90 4RF Referrals: Milly Momin PA-C [Primary Care Provider, Internal Medicine] Interventions: ED Discharge Assessment Last Done: 07/14/25 10:07 Discharge Date/Time: 07/14/25 10:09 Print Language: Kyrgyz
[2025-07-14] MEDS: Diphth,Pertus(ACell),Tet Adult 0.5 ML SYRINGE IM (10:05)
[2025-07-14 10:07] VITALS: BP 171/82; PULSE 66; RESP 18; TEMP -17.7; TEMP 0; O2SAT 99
== END 2025-07-14 10:09 | disposition home or self-care (01) ==
PROVIDERS: Emergency Provider Emergency Medicine
DX: S60.221A Contusion of right hand, initial encounter (principal); S61.411A Laceration without foreign body of right hand, initial encounter; W22.8XXA Striking against or struck by other objects, initial encounter; Y93.9 Activity, unspecified; Y92.9 Unspecified place or not applicable; Z23 Encounter for immunization
CPT/HCPCS: 73130; 90471; 90715; 99284

== ENCOUNTER → 2025-07-14 08:22 | Outpatient (BNV) | payer MEDICARE, SELFPAY | PROVIDERS: Emergency Provider Emergency Medicine; Visit Provider Specialist | DX: S69.91XA Unspecified injury of right wrist, hand and finger(s), initial encounter (principal) | CPT/HCPCS: 73130 ==

== ENCOUNTER 2025-07-31 13:45 | Outpatient (AMB) | payer MEDICARE, SELFPAY ==
--- NOTE | 2025-07-31 13:52 | A.OFFVIS_ITS ---
Vital Signs 07/31/25 13:56 Height 5 ft 2.72 in Weight 101 lb 13.657 oz BMI 18.2 BP 114/68 Blood Pressure Location Rt brachial Position Sitting Pulse 86 Pulse Source Pulse Oximeter Pulse Oximetry (%) 98 Oxygen Delivery Method Room Air Intake Visit Reasons: Age-related osteoporosis without current patholog Intake Note: New patient referred by PCP for Age-related Osteoporosis. 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 First diagnosed in 5 yrs ago . Received treatment in the past with Evista , for 5 yrs Tolerated treatment well without complication. history of pathologic fracture of wrist 3 yrs ago fall from standing or ONJ. Has several servings of dietary calcium per day in the form of cheese, broccoli , milk . Not Takes Calcium supplement [] mg daily in divided doses. Takes 1000 IU of Vitamin D daily. Denies ever using PPI, anticoagulant, antiepileptic or glucocorticoid medication. 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 UTD on dental cleanings and sees dentist every 6 months. No planned upcoming de ntal work or extractions. DXA dated 07/26/24 :technical quality. Summary results are attached. FINDINGS: LEFT FEMUR, NECK: Current: BMD 0.641 g/cm2, Z-score -0.4, T-score -2.9, osteoporosis. Prior: BMD 0.710 g/cm2. Baseline: BMD 0.691 g/cm2. LEFT FEMUR, TOTAL: Current: BMD 0.698 g/cm2, Z-score -0.1, T-score -2.5, osteoporosis, 1.0% decrease from previous, 2.8% decrease from baseline (<5% change is not significant). Prior: BMD 0.705 g/cm2. Baseline: BMD 0.718 g/cm2. AP SPINE L1-L4: Current: BMD 0.982 g/cm2, Z-score 0.7, T-score -1.7, osteopenia, 4.1% increase from previous, 11.1% increase from baseline (<5% change is not significant). Prior: BMD 0.943 g/cm2. Baseline: BMD 0.884 g/cm2. Labs: The patient is an 79-year-old female presenting with osteoporosis management. She was diagnosed with osteoporosis approximately five years ago by Dr. Porter and has been on raloxifene since then, which was initially prescribed for breast cancer management but also aids in osteoporosis treatment. The patient experienced a wrist fracture three years ago after a fall while trying to put on boots, which she attributes to carelessness. The patient denies any other fractures, including those of the hip or spine. She has been advised to take 1200 mg of calcium daily, primarily from dietary sources, and to continue vitamin D supplementation, which has maintained her vitamin D levels within the normal range. The patient has reduced dairy intake due to concerns about hypercholesterolemia, but she consumes cheese, broccoli, oatmeal, and low-fat milk. The patient reports no history of kidney stones or family history of osteoporosis or hip fractures. She is up to date with dental cleanings and has no planned dental procedures. The patient does not engage in weight-bearing exercises but is encouraged to do so to aid in bone health. The patient has reduced her dairy intake due to concerns about hypercholesterolemia but continues to consume cheese, broccoli, oatmeal, and low-fat milk. She has been advised to maintain a daily intake of 1200 mg of calcium, primarily from dietary sources, and to continue vitamin D supplementation. [facility] Medical History Left wrist fracture Fracture of left distal radius Hyperlipidemia Status post placement of implantable loop recorder CVA (cerebral vascular accident) Surgical History History of left breast biopsy (07/19/13) Hx of lumpectomy (08/17/13) Hx of colonoscopy (03/04/15) Hx of cataract extraction Family History Father COPD (chronic obstructive pulmonary disease) Mother Asthma Sister Breast cancer, Onset Age: 70 Maternal Grandfather Lung cancer Social History Household Members: Spouse and Children Housing: House Are you a primary care professional to a significant other at home: No Do you presently have visiting nurse or other home services: No Alcohol intake: never Patient Tobacco Use Status: Never used Tobacco Tobacco use type: Cigarette e-Cigarette/Vaping Use: Never Used Second Hand Smoke Exposure: No service: No 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al status: retired 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: Rt handed Cognitive needs: No Hearing needs: Yes (Hearing aids.) Vision needs: No Physical Exam Vital Signs: Last Vital Signs Pulse 86 07/31/25 13:56 BP 114/68 07/31/25 13:56 Pulse Ox 98 07/31/25 13:56 Oxygen Delivery Method Room Air 07/31/25 13:56 BMI result Body Mass Index 18.2 There are no Cushingoid features. Absence of blue sclera. Absence of kyphosis. Thyroid gland is of nl size and weighs 15 gms. There are no thyroid nodules palpated. Lungs CTA. Heart S1 S2 Reg R/R Abdominal exam benign. Muscle strength 5/5 . Examination of spine reveals absence of tenderness on palpation Assessment & Plan Assessment & Plan (1) Osteoporosis: Code(s): M81.0 - Age-related osteoporosis without current pathological fracture Category: Medical Plan: This is 79-year-old white female with a history of osteoporosis with partial secondary workup. She is currently on Evista prescribed by another provider Plan is to complete the secondary workup by checking a serum phosphorus level, 24 hour urine for calcium and creatinine, urine immunofixation. We will also check urine NTX. Considering history of wrist fracture and lack of hip protection with Evista might consider adding oral or intravenous bisphosphonate once secondary workup is complete 1. Osteoporosis The patient has a history of osteoporosis with a T score of -2.9 in the left hip. She is on raloxifene and advised to maintain calcium and vitamin D intake. A 24-hour urine collection and blood tests are planned. Follow-up in four months to review results and consider additional treatment options. I discussed with the patient the importance of managing osteoporosis to prevent fractures, especially given her age and risk factors. We reviewed the role of raloxifene in managing both osteoporosis and breast cancer. I explained the need for a 24-hour urine collection and blood tests to rule out other conditions. We discussed the potential use of alendronate or Prolia in the future, depending on test results. I emphasized the importance of calcium and vitamin D intake, as well as weight-bearing exercises, to improve bone health. The patient was advised to follow up in four months to review test results and adjust the treatment plan as necessary. - Take 1200 mg of calcium daily, primarily from dietary sources. - Continue vitamin D supplementation as prescribed. - Engage in weight-bearing exercises to improve bone health. - Complete the 24-hour urine collection and blood tests as instructed. - The patient had an opportunity to ask questions regarding treatment plan. The patient expressed understanding and agreement with the above treatment plan. Patient was informed and verbally consented to the use of an ambient scribe for clinic note documentation during this visit. Orders: Orders Creatinine, 24 Hr Group Today M81.0 - Age-related osteoporosis without current pathological fracture Collagen Crosslinks NTX Today M81.0 - Age-related osteoporosis without current pathological fracture Immunofixation, Random Urine Today M81.0 - Age-related osteoporosis without current pathological fracture Phosphorus Today M81.0 - Age-related osteoporosis without current pathological fracture Calcium, 24 Hr Ur Today M81.0 - Age-related osteoporosis without current pathological fracture Coding Level of Care Code New Pt Level 4 (23107) Diagnoses Osteoporosis M81.0
[2025-07-31 13:56] VITALS: BP 114/68; PULSE 86; O2SAT 98; BMI 18.2
== END 2025-07-31 14:27 | disposition home or self-care (01) ==
LOC: HO.ENCR 13:46
PROVIDERS: PCP Internal Medicine; Visit Provider Internal Medicine Endocrinology, Diabetes & Metabolism
DX: M81.0 Age-related osteoporosis without current pathological fracture (principal)
CPT/HCPCS: 99204

== ENCOUNTER → 2025-07-31 13:45 | Outpatient (BNVA) | payer MEDICARE, SELFPAY | PROVIDERS: PCP Internal Medicine; Visit Provider Internal Medicine Endocrinology, Diabetes & Metabolism | DX: M81.0 Age-related osteoporosis without current pathological fracture (principal) | CPT/HCPCS: 99202 ==

== ENCOUNTER 2025-08-26 09:57 | Outpatient (AMB) | payer MEDICARE, SELFPAY ==
--- NOTE | 2025-08-26 10:10 | MHC.OFFVIS ---
Vital Signs 08/26/25 10:17 Height 5 ft 3 in Weight 102 lb 4 oz BMI 18.1 BP 120/72 Blood Pressure Location Rt brachial Position Sitting Intake Visit Reasons: yearly breast exam Intake Note: Patient is seen in office for yearly breast exam. 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 She is a former patient of Dr. Tucker diagnosed with invasive ductal carcinoma of the left breast on 07/19/2013 on a stereotactic guided core biopsy. She subsequently underwent a left breast lumpectomy with sentinel node biopsy on 08/07/2013. Pathology revealed a 0.8 cm infiltrating ductal carcinoma, ER positive, CA negative, HER2 Sha negative. 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 She subsequently completed radiation therapy in October 2013 and was placed on tamoxifen for 5 years, completed in 2018 (Dr. Block). She was then placed on raloxifene which he remains on currently for her osteoporosis. Her most recent mammogram dated of 02/11/2025 revealed no mammographic evidence of malignancy (BI-RADS 2). She is scheduled for a follow-up mammogram on 02/18/2026. She feels well and denies any ongoing symptoms. [facility] Medical History Left wrist fracture Fracture of left distal radius Hyperlipidemia Status post placement of implantable loop recorder CVA (cerebral vascular accident) Surgical History History of left breast biopsy (07/19/13) Hx of lumpectomy (08/17/13) Hx of colonoscopy (03/04/15) Hx of cataract extraction Family History Father COPD (chronic obstructive pulmonary disease) Mother Asthma Sister Breast cancer, Onset Age: 70 Maternal Grandfather Lung cancer Social History Household Members: Spouse and Children Housing: House Are you a primary home health aide caregiver to a significant other at home: No Do you presently have visiting nurse or other home services: No Alcohol intake: never Patient Tobacco Use Status: Never used Tobacco Tobacco use type: Cigarette e-Cigarette/Vaping Use: Never Used Second Hand Smoke Exposure: No service: No 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al status: retired 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: Rt handed Cognitive needs: No Hearing needs: Yes (Hearing aids.) Vision needs: No Review of Systems Const Denies chills, Denies fever(s), Denies headache(s) and Denies poor appetite ENT Denies dizziness and Denies headache(s) Card Denies chest pain, Denies rapid heart rate, Denies palpitations and Denies slow heart rate Resp Denies chest congestion, Denies cough, Denies pain on inspiration and Denies wheezing GI Denies abdominal pain, Denies bloating, Denies change in stool character, Denies constipation, Denies diarrhea, Denies nausea, Denies vomiting and Denies hematemesis Denies nipple discharge Musc Denies back pain, Denies arthralgias, Denies joint swelling and Denies numbness Skin/Breast Denies breast skin changes, Denies breast pain, Denies breast mass, Denies change in breast shape, Denies change in pigmentation, Denies nipple discharge, Denies erythema and Denies rash Neuro Denies dizziness, Denies headache(s) and Denies numbness Psych Denies anxiety and Denies depression Endo Denies palpitations Isiah/Lymph Denies easy bleeding, Denies easy bruising and Denies lymphadenopathy Aller/Immun Denies wheezing Physical Exam Const General: healthy appearing and no acute distress Nutritional Appearance: thin Orientation/consciousness: patient oriented x3 Limitations: no limitations Eyes Sclerae: sclerae normal EOM: EOMs intact bilaterally Chest Other: Left breast: No skin change, no nipple retraction, no nipple discharge, no palpable mass, no enlarged lymph nodes. Left breast is somewhat stiffer compared to the right breast but no suspicious changes are appreciated. Right breast: No skin change, no nipple retraction, no nipple discharge, no palpable mass, no enlarged lymph nodes Resp Effort & Inspection: normal respiratory effort, no audible wheezes, no cough and no respiratory distress Skin General skin exam: no rashes or lesions noted Neuro Other: Mobility Assessment: 1. 3 meter assessment time (seconds) 6 2. Gait observations: Normal balance and gait General: patient oriented x3 Extrem General: Yes no clubbing, cyanosis or edema Assessment & Plan Assessment & Plan (1) Breast cancer: Code(s): C50.919 - Malignant neoplasm of unspecified site of unspecified female breast Category: Medical Qualifiers: Breast location: central portion of breast Estrogen receptor status: positive Patient sex: female Laterality: left Qualified Code(s): C50.112 - Malignant neoplasm of central portion of left female breast; Z17.0 - Estrogen receptor positive status [ER+] Plan 79-year-old female patient former Dr. Tucker patient with history of left breast infiltrating ductal carcinoma status post left breast lumpectomy with needle localization, sentinel node biopsy in 2012 followed by radiation therapy and tamoxifen for 5 years now on raloxifene. Her most recent mammogram of 02/11/2025 revealed no mammographic evidence of malignancy (BI-RADS 2). Routine screening mammogram is recommended in 1 year in his scheduled for 02/18/2026. Exam today reveals no suspicious findings in either breast. Examination recommended in 1 year, sooner p.r.n.. Coding Level of Care Code Est Pt Level 3 (41647) Complex visit Add On G2211 Diagnoses Malignant neoplasm of central portion of left breast in female, estrogen receptor positive C50.112; Z17.0 Breast location: central portion of breast Estrogen receptor status: positive Patient sex: female Laterality: left
[2025-08-26 10:17] VITALS: BP 120/72; BMI 18.1
== END 2025-08-26 10:05 | disposition home or self-care (01) ==
LOC: HO.HGS 09:58
PROVIDERS: PCP Internal Medicine; Visit Provider Surgery
DX: C50.112 Malignant neoplasm of central portion of left female breast (principal); Z17.0 Estrogen receptor positive status [ER+]
CPT/HCPCS: 99213; G2211

== ENCOUNTER → 2025-08-26 09:57 | Outpatient (BNVA) | payer MEDICARE, SELFPAY | PROVIDERS: PCP Internal Medicine; Visit Provider Surgery | DX: C50.112 Malignant neoplasm of central portion of left female breast (principal); Z17.0 Estrogen receptor positive status [ER+]; Z90.12 Acquired absence of left breast and nipple | CPT/HCPCS: 99212 ==

== ENCOUNTER 2025-09-02 08:35 | Outpatient (REF) | payer MEDICARE, SELFPAY ==
[2025-09-02 09:56] LABS: Alanine Aminotransferase 18 U/L (0-31); Albumin Level 3.9 g/dL (3.5-5.0); Alkaline Phosphatase 75 U/L (39-117); Anion Gap 16 (12-20); Aspartate Amino Transferase 40 U/L (5-31); Blood Urea Nitrogen 32 mg/dL (9-16); Calcium 9.9 mg/dL (8.4-10.2); Carbon Dioxide 27 mmol/L (22-29); Chloride 107 mmol/L (96-108); Cholesterol 167 mg/dL (<200); Estimated Glomerular Filt Rate 36; HDL Cholesterol 74 mg/dL (>40); Potassium 4.7 mmol/L (3.3-5.1); Sodium 145 mmol/L (135-145); Total Protein 7.0 g/dL (6.5-8.0); Triglycerides 62 mg/dL (<150)
== END 2025-09-02 08:36 | disposition home or self-care (01) ==
LOC: HO.LAB 08:35
DX: E78.00 Pure hypercholesterolemia, unspecified (principal); I63.9 Cerebral infarction, unspecified
CPT/HCPCS: 36415; 80053; 80061